=== PATIENT | female | born 1985 | race Caucasian/White ===

== ENCOUNTER 2019-02-10 08:27 | Emergency (ER) | payer SELFPAY ==
--- NOTE | 2019-02-10 09:21 | RAD REPORT ---
EXAM DESCRIPTION: RAD - Wrist Left 3 View - 02/10/2019 9:11 am CLINICAL HISTORY: PAIN Pain COMPARISON: No comparisons FINDINGS: No fracture or dislocation seen. No foreign body or other soft tissue abnormality. IMPRESSION: Negative examination.
--- NOTE | 2019-02-10 09:23 | ER ---
Nurse's Notes [facility] Name: Cheli Jang Age: 33 yrs Sex: Female : 1985 Arrival Date: 02/10/2019 Time: 08:31 Bed 14 Private MD: None, None Diagnosis: Contusion of left wrist Presentation: 02/10 08:39 Presenting complaint: Patient states: yesterday was carrying some wood, was trying to iw put it into her car, hit left wrist on car door, now c/o pain to left wrist. Transition of care: patient was not received from another setting of care. Onset of symptoms was February 08, 2019. Risk Assessment: Do you want to hurt yourself or someone else? Patient reports no desire to harm self or others. Initial Sepsis Screen: Does the patient meet any 2 criteria? No. Patient's initial sepsis screen is negative. Does the patient have a suspected source of infection? No. Patient's initial sepsis screen is negative. Care prior to arrival: None. 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 - Family history:: not pertinent. - Hospitalizations: : No recent hospitalization is reported. Screenin:50 Abuse screen: Denies threats or abuse. Nutritional screening: No deficits noted. aa5 Tuberculosis screening: No symptoms or risk factors identified. Fall Risk None identified. Assessment: 08:38 General: Appears comfortable, Behavior is calm, cooperative. Pain: Complains of pain in aa5 left wrist Pain does not radiate. Pain currently is 9 out of 10 on a pain scale. Quality of pain is described as sharp, Pain began 1 day ago. Is continuous, Aggravated by movement to left wrist. Neuro: Level of Consciousness is awake, alert, obeys commands, Oriented to person, place, time, situation. Cardiovascular: Capillary refill < 3 seconds is brisk in bilateral fingers. Respiratory: Airway is patent Respiratory effort is even, unlabored, Respiratory pattern is regular, symmetrical. GI: No signs and/or symptoms were reported involving the gastrointestinal system. : No signs and/or symptoms were reported regarding the genitourinary system. EENT: No signs and/or symptoms were reported regarding the EENT system. Derm: Skin is pink, warm \T\ dry. Musculoskeletal: Range of motion: intact in all extremities. 09:45 Reassessment: Patient is alert, oriented x 3, equal unlabored respirations, skin aa5 warm/dry/pink. Vital Signs: 08:43 Pulse 96; Resp 16 S; Temp 98.0(O); Pulse Ox 100% on R/A; Weight 98.43 kg; Height 5 ft. iw 6 in. (167.64 cm); Pain 9/10; 08:45 BP 127 / 83; aa5 08:43 Body Mass Index 35.02 (98.43 kg, 167.64 cm) iw ED Course: 08:31 Patient arrived in ED. mr 08:31 None, None is Private Physician. mr 08:34 Ishmael Fried MD is Attending Physician. rn 08:35 Lis Luevano, SADE is Primary Nurse. aa5 08:38 Arm band placed on. aa5 08:38 Patient has correct armband on for positive identification. Bed in low position. Call aa5 light in reach. Side rails up X 1. 08:42 Triage completed. iw 09:11 X-ray completed. Portable x-ray completed in exam room. Patient tolerated procedure la2 well. 09:12 XRAY Wrist LEFT 3 view In Process Unspecified. EDMS 09:45 No provider procedures requiring assistance completed. Patient did not have IV access aa5 during this emergency room visit. Administered Medications: No medications were administered Outcome: 09:23 Discharge ordered by . rn 09:45 Discharged to home ambulatory. aa5 09:45 Condition: good 09:45 Discharge instructions given to patient, Instructed on discharge instructions, follow up and referral plans. Demonstrated understanding of instructions, follow-up care. 09:49 Patient left the ED. aa5 Signatures: Dispatcher [employer] GILBERT Su Karla mr Deisy Cabrales, RN RN iw Ishmael Fried MD MD rn Calderon, Audri, RN RN aa5 Stacey Boyd Corrections: (The following items were deleted from the chart) 08:51 08:43 Arm band placed on iw aa5
--- NOTE | 2019-02-10 09:23 | EDPHYS ---
Physician Documentation [facility] Name: Cheli Jang Age: 33 yrs Sex: Female : 1985 Arrival Date: 02/10/2019 Time: 08:31 Bed 14 Private MD: None, None ED Physician Ishmael Fried HPI: 02/10 08:42 This 33 yrs old Female presents to ER via Ambulatory with complaints of Wrist rn Injury. 08:42 The patient or guardian reports injury, pain. The complaints affect the left wrist rn diffusely. Context: The problem was sustained at home. Onset: The symptoms/episode began/occurred yesterday. Modifying factors: The symptoms are alleviated by holding still, the symptoms are aggravated by movement. The patient has not experienced similar symptoms in the past. Reports using filomena yesterday, moving a lot of wood, and hit left wrist on car door yesterday, concerned might be broken. No fall. Able to move, hurts more on radial side. . 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 - Family history:: not pertinent. - Hospitalizations: : No recent hospitalization is reported. ROS: 08:42 MS/Extremity: + left wrist injury and pain Neuro: Negative for rn numbness/tingling/weakness Exam: 08:42 Hand exam: is negative for rn 08:42 Hand exam: is negative for perfusion abnormalities, pulse abnormalities, snuff box/scaphoid tenderness, Exam is positive for pain, tenderness, ROM: full passive range of motion, limited active range of motion, Circulation is intact in all extremities. sensation intact. Compartment Syndrome exam of affected extremity: is normal. Vital Signs: 08:43 Pulse 96; Resp 16 S; Temp 98.0(O); Pulse Ox 100% on R/A; Weight 98.43 kg; Height 5 ft. iw 6 in. (167.64 cm); Pain 9/10; 08:45 BP 127 / 83; aa5 08:43 Body Mass Index 35.02 (98.43 kg, 167.64 cm) iw MDM: 08:34 Patient medically screened. rn 09:22 Differential diagnosis: closed fracture, contusion, tendonitis. Data reviewed: vital rn signs, nurses notes, radiologic studies, plain films, and as a result, I will discharge patient. Counseling: I had a detailed discussion with the patient and/or guardian regarding: the historical points, exam findings, and any diagnostic results supporting the discharge/admit diagnosis, radiology results, the need for outpatient follow up, to return to the emergency department if symptoms worsen or persist or if there are any questions or concerns that arise at home. Special discussion: I discussed with the patient/guardian in detail that at this point there is no indication for admission to the hospital. It is understood, however, that if the symptoms persist or worsen the patient needs to return immediately for re-evaluation. 02/10 08:42 Order name: XRAY Wrist LEFT 3 view; Complete Time: 09:22 rn Administered Medications: No medications were administered Disposition: 02/10/19 09:23 Discharged to Home. Impression: Contusion of left wrist. - Condition is Stable. - Discharge Instructions: Wrist Pain. - Medication Reconciliation Form, Thank You Letter, Antibiotic Education, Prescription Opioid Use form. - Follow up: Private Physician; When: As needed; Reason: Recheck today's complaints, Re-evaluation by your physician. - Problem is new. - Symptoms have improved. Signatures: Dispatcher [employer] EDDeisy Lipscomb RN RN Ishmael Fried MD MD rn Calderon, Audri, RN RN aa5 Corrections: (The following items were deleted from the chart) 09:49 09:23 02/10/2019 09:23 Discharged to Home. Impression: Contusion of left wrist. aa5 Condition is Stable. Forms are Medication Reconciliation Form, Thank You Letter, Antibiotic Education, Prescription Opioid Use. Follow up: Private Physician; When: As needed; Reason: Recheck today's complaints, Re-evaluation by your physician. Problem is new. Symptoms have improved. rn
[2019-02-10 13:50] VITALS: TEMP 98; O2SAT 100
[2019-02-10 13:53] VITALS: BP 127/83
== END 2019-02-10 09:49 | disposition home or self-care (01) ==
LOC: ER 08:27
DX: S60.212A Contusion of left wrist, initial encounter (principal); W22.8XXA Striking against or struck by other objects, initial encounter
CPT/HCPCS: 99283

== ENCOUNTER 2020-04-11 19:38 | Emergency (ER) | payer SELFPAY ==
[2020-04-11] MEDS ORDERED: ONDANSETRON 4 MG (ODT) TAB ONE (21:26)
[2020-04-11] MEDS ORDERED: ACETAMINOPHEN 325 MG TABLET ONE (21:26)
[2020-04-11] MEDS ORDERED: NEOMY/POLY/HC 1% OTIC DROPS ONE (21:44)
[2020-04-11] MEDS ORDERED: HYDROCODONE/APAP 7.5/325 MG TAB ONE (21:45)
[2020-04-11] MEDS ORDERED: dexAMETHasone 4 MG TAB ONE (21:46)
--- NOTE | 2020-04-11 22:27 | EDPHYS ---
Physician Documentation [facility] Name: Cheli Jang Age: 35 yrs Sex: Female : 1985 Arrival Date: 04/11/2020 Time: 19:39 Bed 27 Private MD: SUMEET Physician George Amaya HPI: 04/11 21:52 This 35 yrs old Female presents to ER via Ambulatory with complaints of Ear snw Pain. 21:52 The patient presents with a fullness, hearing loss, pain, that is acute. The complaints snw affect the right ear. Onset: The symptoms/episode began/occurred suddenly. Modifying factors: The symptoms are alleviated by nothing, the symptoms are aggravated by pulling on ears, . Associated signs and symptoms: Pertinent positives: unable to sleep 2nd to pain. Severity of symptoms: At their worst the symptoms were moderate. The patient has not experienced similar symptoms in the past. The patient has not recently seen a physician. using swimmer's ear, candleing, . Historical: - Allergies: 20:01 No Known Allergies; ll1 - PSHx: 20:01 Cholecystectomy; Tubal ligation; ; ll1 - Immunization history:: Adult Immunizations up to date. - Social history:: Smoking status: Patient reports the use of cigarette tobacco products, smokes one-half pack cigarettes per day, Patient/guardian denies using alcohol, street drugs. ROS: 21:46 Constitutional: Negative for fever, chills, and weight loss, Eyes: Negative for injury, snw pain, redness, and discharge, Neck: Negative for injury, pain, and swelling, Cardiovascular: Negative for chest pain, palpitations, and edema, Respiratory: Negative for shortness of breath, cough, wheezing, and pleuritic chest pain, Abdomen/GI: Negative for abdominal pain, nausea, vomiting, diarrhea, and constipation, Back: Negative for injury and pain, : Negative for injury, bleeding, discharge, and swelling, MS/Extremity: Negative for injury and deformity, Skin: Negative for injury, rash, and discoloration, Neuro: Negative for headache, weakness, numbness, tingling, and seizure, Psych: Negative for depression, anxiety, suicide ideation, homicidal ideation, and hallucinations. 21:46 ENT: Negative for ear pain. Exam: 21:43 Constitutional: This is a well developed, well nourished patient who is awake, alert, snw and in no acute distress. Head/Face: Normocephalic, atraumatic. Eyes: Pupils equal round and reactive to light, extra-ocular motions intact. Lids and lashes normal. Conjunctiva and sclera are non-icteric and not injected. Cornea within normal limits. Periorbital areas with no swelling, redness, or edema. Neck: Trachea midline, no thyromegaly or masses palpated, and no cervical lymphadenopathy. Supple, full range of motion without nuchal rigidity, or vertebral point tenderness. No Meningismus. Chest/axilla: Normal chest wall appearance and motion. Nontender with no deformity. No lesions are appreciated. Cardiovascular: Regular rate and rhythm with a normal S1 and S2. No gallops, murmurs, or rubs. Normal PMI, no JVD. No pulse deficits. Respiratory: Lungs have equal breath sounds bilaterally, clear to auscultation and percussion. No rales, rhonchi or wheezes noted. No increased work of breathing, no retractions or nasal flaring. Abdomen/GI: Soft, non-tender, with normal bowel sounds. No distension or tympany. No guarding or rebound. No evidence of tenderness throughout. Back: No spinal tenderness. No costovertebral tenderness. Full range of motion. Skin: Warm, dry with normal turgor. Normal color with no rashes, no lesions, and no evidence of cellulitis. MS/ Extremity: Pulses equal, no cyanosis. Neurovascular intact. Full, normal range of motion. Neuro: Awake and alert, GCS 15, oriented to person, place, time, and situation. Cranial nerves II-XII grossly intact. Motor strength 5/5 in all extremities. Sensory grossly intact. Cerebellar exam normal. Normal gait. Psych: Awake, alert, with orientation to person, place and time. Behavior, mood, and affect are within normal limits. 21:43 ENT: External ear(s): are unremarkable, Ear canal(s): erythema, that is moderate, swelling, that is moderate, of the right canal, TM's: not visable, because of cerumen, Nose: is normal, Mouth: is normal, Posterior pharynx: is normal, Voice: is normal. Vital Signs: 19:59 BP 146 / 105; Pulse 104; Resp 17; Temp 97.9; Pulse Ox 96% ; Pain 2/10; ll1 21:57 BP 131 / 93; Pulse 77; Resp 16; Pulse Ox 100% on R/A; jb4 22:30 BP 123 / 92; Pulse 74; Resp 16; Pulse Ox 98% on R/A; jb4 MDM: 19:58 Patient medically screened. [facility] 22:25 Data reviewed: vital signs, nurses notes. Data interpreted: Pulse oximetry: on room air snw is 100 %. Interpretation: normal. Counseling: I had a detailed discussion with the patient and/or guardian regarding: the historical points, exam findings, and any diagnostic results supporting the discharge/admit diagnosis, the presence of at least one elevated blood pressure reading (>120/80) during this emergency department visit, the need for outpatient follow up, to return to the emergency department if symptoms worsen or persist or if there are any questions or concerns that arise at home. Special discussion: I have referred the patient to see his PCP for further evaluation of high blood pressure. Based on the history and exam findings, there is no indication for further emergent testing or inpatient evaluation. I discussed with the patient/guardian the need to see the ENT specialist for further evaluation of the symptoms. I discussed with the patient/guardian the need to see the primary care provider for further evaluation of the symptoms. Administered Medications: 21:10 Drug: Zofran (Ondansetron) 4 mg Route: PO; jb4 21:56 Follow up: Response: No adverse reaction; Nausea is decreased jb4 21:15 Drug: Tylenol 650 mg Route: PO; jb4 21:56 Follow up: Response: No adverse reaction; Pain is decreased jb4 21:44 Drug: Eva (7.5 mg-325 mg) 1 tabs Route: PO; jb4 21:56 Follow up: Response: No adverse reaction; RASS: Alert and Calm (0) jb4 21:44 Drug: Decadron 8 mg Route: PO; jb4 21:56 Follow up: Response: No adverse reaction jb4 21:54 Drug: Cortisporin Drops 4 drops Route: Otic; Site: right ear; jb4 Disposition: 04/12 14:45 Co-signature as Attending Physician, George Amaya MD I agree with the assessment and [facility] plan of care. Disposition: 04/11/20 22:26 Discharged to Home. Impression: Acute contact otitis externa. - Condition is Stable. - Discharge Instructions: Otitis Externa, Heat Therapy. - Prescriptions for Diclofenac Sodium 75 mg Oral Tablet Sustained Release - take 1 tablet by ORAL route 2 times per day; 30 tablet. - Work release form, Medication Reconciliation Form, Thank You Letter, Antibiotic Education, Prescription Opioid Use form. - Follow up: Emergency Department; When: As needed; Reason: Worsening of condition. Follow up: Private Physician; When: 2 - 3 days; Reason: Recheck today's complaints, Continuance of care, Re-evaluation by your physician. Signatures: George Amaya MD MD cha Therrien, Shelly, CASE MONITOR-C CASE MONITOR-Csnw Luis Vallejo, RN RN jb4 Zay Lomeli RN RN ll1 Corrections: (The following items were deleted from the chart) 04/11 22:39 22:26 04/11/2020 22:26 Discharged to Home. Impression: Acute contact otitis externa. jb4 Condition is Stable. Forms are Medication Reconciliation Form, Thank You Letter, Antibiotic Education, Prescription Opioid Use. Follow up: Emergency Department; When: As needed; Reason: Worsening of condition. Follow up: Private Physician; When: 2 - 3 days; Reason: Recheck today's complaints, Continuance of care, Re-evaluation by your physician. snw
--- NOTE | 2020-04-11 22:27 | ER ---
Nurse's Notes [facility] Name: Cheli Jang Age: 35 yrs Sex: Female : 1985 Arrival Date: 04/11/2020 Time: 19:39 Bed 27 Private MD: Diagnosis: Acute contact otitis externa Presentation: 04/11 19:59 Chief complaint: Patient states: Right ear pain since Friday. Tried OTC drops, ll1 without relief. States it feels clogged and makes little noises when swallowing. No fever. Coronavirus screen: Proceed with normal triage. Patient denies a cough. Patient denies shortness of breath or difficulty breathing. Patient denies measured and/or subjective temperature greater than 100.4F prior to today's visit. Patient denies travel on a cruise ship or to a country the [facility] currently lists as an affected area. Patient denies contact with known and/or suspected case of COVID-19. Ebola Screen: Patient denies travel to an Ebola-affected area in the 21 days before illness onset. Initial Sepsis Screen: Does the patient meet any 2 criteria? HR > 90 bpm. No. Patient's initial sepsis screen is negative. Risk Assessment: Do you want to hurt yourself or someone else? Patient reports no desire to harm self or others. Onset of symptoms was April 08, 2020. 19:59 Method Of Arrival: Ambulatory ll1 19:59 Acuity: EUGENIO 4 ll1 Historical: - Allergies: 20:01 No Known Allergies; ll1 - PSHx: 20:01 Cholecystectomy; Tubal ligation; ; ll1 - Immunization history:: Adult Immunizations up to date. - Social history:: Smoking status: Patient reports the use of cigarette tobacco products, smokes one-half pack cigarettes per day, Patient/guardian denies using alcohol, street drugs. Screenin:25 Abuse screen: Denies threats or abuse. Nutritional screening: No deficits noted. jb4 Tuberculosis screening: No symptoms or risk factors identified. Fall Risk None identified. Assessment: 20:25 General: Appears in no apparent distress. uncomfortable, Behavior is calm, cooperative, jb4 appropriate for age. Pain: Complains of pain in right ear Pain does not radiate. Pain currently is 4 out of 10 on a pain scale. Quality of pain is described as aching. Neuro: Level of Consciousness is awake, alert, obeys commands, Oriented to person, place, time, situation. Cardiovascular: Patient's skin is warm and dry. Respiratory: Airway is patent Respiratory effort is even, unlabored, Respiratory pattern is regular, symmetrical. GI: No signs and/or symptoms were reported involving the gastrointestinal system. : No signs and/or symptoms were reported regarding the genitourinary system. EENT: Tympanic membrane not visualized left ear and right ear Ear canal is clear in the right ear and dried blood is noted to the wall of the canal, Cerumen occludes the left ear canal. Provider notified.. Derm: Skin is intact, Skin is pink, warm \T\ dry. Musculoskeletal: Circulation, motion, and sensation intact. Range of motion: intact in all extremities. 21:57 Reassessment: Patient appears in no apparent distress at this time. Patient and/or jb4 family updated on plan of care and expected duration. Pain level reassessed. Patient is alert, oriented x 3, equal unlabored respirations, skin warm/dry/pink. Patient states feeling better. 22:36 Reassessment: Patient appears in no apparent distress at this time. Patient and/or jb4 family updated on plan of care and expected duration. Pain level reassessed. Patient is alert, oriented x 3, equal unlabored respirations, skin warm/dry/pink. Vital Signs: 19:59 BP 146 / 105; Pulse 104; Resp 17; Temp 97.9; Pulse Ox 96% ; Pain 2/10; ll1 21:57 BP 131 / 93; Pulse 77; Resp 16; Pulse Ox 100% on R/A; jb4 22:30 BP 123 / 92; Pulse 74; Resp 16; Pulse Ox 98% on R/A; jb4 ED Course: 19:39 Patient arrived in ED. cl3 19:56 Leslie Hutchinson FNP-C [facility]. snw 19:56 George Amaya MD is Attending Physician. snw 20:00 Triage completed. ll1 20:01 Arm band placed on Patient placed in an exam room, on a stretcher. ll1 20:25 Luis Vallejo RN is Primary Nurse. jb4 20:25 Patient has correct armband on for positive identification. Bed in low position. Call jb4 light in reach. Side rails up X 1. Pulse ox on. NIBP on. 22:38 No provider procedures requiring assistance completed. Patient did not have IV access jb4 during this emergency room visit. Administered Medications: 21:10 Drug: Zofran (Ondansetron) 4 mg Route: PO; jb4 21:56 Follow up: Response: No adverse reaction; Nausea is decreased jb4 21:15 Drug: Tylenol 650 mg Route: PO; jb4 21:56 Follow up: Response: No adverse reaction; Pain is decreased jb4 21:44 Drug: [place] (7.5 mg-325 mg) 1 tabs Route: PO; jb4 21:56 Follow up: Response: No adverse reaction; RASS: Alert and Calm (0) jb4 21:44 Drug: Decadron 8 mg Route: PO; jb4 21:56 Follow up: Response: No adverse reaction jb4 21:54 Drug: Cortisporin Drops 4 drops Route: Otic; Site: right ear; jb4 Outcome: 22:26 Discharge ordered by MD. rodrigues 22:38 Discharged to home ambulatory. jb4 22:38 Condition: stable 22:38 Discharge instructions given to patient, Instructed on discharge instructions, follow up and referral plans. medication usage, Demonstrated understanding of instructions, follow-up care, medications, Prescriptions given X 1. 22:39 Patient left the ED. jb4 Signatures: Leslie Hutchinson, MUD JACK NOZZLE WORKER-C MUD JACK NOZZLE WORKER-Csnw Luis Vallejo RN RN jb4 Estrellita Lomeli3 Zay Lomeli RN RN ll1
== END 2020-04-11 22:39 | disposition home or self-care (01) ==
LOC: ER 19:38
DX: H60.531 Acute contact otitis externa, right ear (principal); F17.210 Nicotine dependence, cigarettes, uncomplicated
CPT/HCPCS: 99283; J8540

== ENCOUNTER 2021-10-25 09:43 | Emergency (ER) | payer OTHER, SELFPAY ==
--- OUTSIDE RECORDS SUMMARY | 2021-10-25 09:47 | XMS REPORT | Continuity of Care Document ---
:1985 Author Organization [facility] t Address [address] [place] [address] [address]. [address] [place] [address] Care Team Providers Name Role Phone Noble Tipton DO Attending Clinician Edilma Arguello Attending Clinician Edilma WELDON Attending Clinician Unavailable Doctor Unassigned, Name Attending Clinician Unavailable Rober KLEIN, F Attending Clinician Payers Payer Name Policy Type Policy Number Effective Date Expiration Date S ource Advance Directives Directive Decision Effective Termination Comments Source Date Date Healthcare Agents on N/A Univ ersity FileNameRelationshipHealthcare [facility] Agent Medical RelationshipCommunicationJerri [facility] [phone] (Mobile)[facility] OtherHealth Care [phone] (Mobile) Problems Condition Condition Condition Status Onset Resolution Last Treating Co mments Source Name Details Category Date Date Treatment Clinician Date History of History of Disease Active U nivers bilateral bilateral 07-19 ity of tubal tubal 00:00: [place] ligation ligation 00 Medica l Branch Feeling Feeling Disease Active Univers tired tired 07-19 ity of 00:00: [address] Intermenst Intermenst Disease Active 2020-0 U nivers rual heavy rual heavy 07-19 it y of bleeding bleeding 00:00: [address] Vaginal Vaginal Disease Active 2017-11 Univers discharge discharge 11-15 ity of 00:00: [address] BMI BMI Disease Active 2017-11 Univers 34.0-34.9, 34.0-34.9, 1-06 it y of adult adult 00:00: [address] BV BV Disease Active 2016-11 Univers (bacterial (bacterial 1-30 it y of vaginosis) vaginosis) 00:[place] [facility] Cervicitis Cervicitis Disease Active 2016-11 U nivers 30 ity of 00:00: [place] 00 [facility] Elevated Elevated Disease Active 2016-11 Unive rs blood blood 1-15 ity of pressure pressure 00:00: [place] reading reading 00 Medical without without Branch diagnosis diagnosis of of hypertensi hypertensi on on Lump or Lump or Disease Active 2016-11 Univers mass in mass in 15 ity of breast breast 00:00: [address] Branch Screening Screening Disease Active Uni vers examinatio examinatio 9-15 it y of n for STD n for STD [place] ([place]ually (sexually 00 [facility] jesus transmitte transmitte Br anch d disease) d disease) Class 1 Class 1 Disease Active Univers obesity obesity 9-15 [place] of with body with body [place] index mass index 00 Me dical (BMI) of (BMI) of Branch 34.0 to 34.0 to 34.9 in 34.9 in adult, adult, unspecifie unspecifie d obesity d obesity type, type, unspecifie unspecifie d whether d whether serious serious comorbidit comorbidit y present y present Tobacco Tobacco Disease Active Univers use use 9-15 ity of disorder disorder 00:00: [place] 00 [facility] IUD IUD Disease Active Univers (intrauter (intrauter 9-15 it y of ine ine 00:00: [place] device) in device) in [address] Branch Other Other Disease Active Univers general general 8-11 ity of counseling counseling [place] and advice and advice 00 Me dical for for Branch contracept contracept daniel daniel management management Allergies, Adverse Reactions, Alerts Allergy Allergy Status Severity Reaction(s) Onset Inactive Treating Comm ents Source Name Type Date Date Clinician NO KNOWN Drug Active Univers ALLERGIE Class ity of [facility] Social History Social Habit Start Date Stop Date Quantity Comments Source History of tobacco 2007-07-25 Cigarette Smoker University of use 00:00:[address] [facility] Exposure to Not sure University of SARS-CoV-2 (event) [facility] Tobacco use and 2020-07-19 2020-07-19 Never used Universit y of exposure 00:00:00 00:00:[address] [facility] Cigarettes smoked 2020-07-19 2020-07-19 Univers ity of current (pack per 00:00:00 00:00:00 [facility] ) - Reported Branch Cigarette 2020-07-19 2020-07-19 University of pack-years 00:00:00 00:00:[address] [facility] Alcohol intake 2020-07-19 2020-07-19 Current University of 00:00:00 00:00:00 non-drinker of [facility] alcohol [place] (finding) Tobacco Comment 2018-09-15 2018-09-15 one pack x1 wk. Univ ersity of 00:00:00 00:00:[address] [facility] Alcohol Comment 2017-07-25 2017-07-25 social Universit y of 00:00:00 00:00:[address] [facility] Sex Ass[birth year] At [birth year] Universit y of 00:00:00 00:00:[address] [facility] Smoking Status Start Date Stop Date Source Current every day smoker 2020-07-19 00:00:[address] [facility] Medications Ordered Filled Start Stop Current Ordering Indication Dosage Frequency Signature Comments Components Source Medication Medication Date Date Medication? Clinician (SIG) Name Name meclizine 2020- No 25mg 25 mg, Unive rs (TRAVEL-EAS 04-15 Oral, ity of E 20:45: 20:03 ONCE, 1 [place] (MECLIZINE) 00 :00 dose, Sat Med ical ) tablet 25 04/15/20 at [facility] mg 1545, ACE meclizine 2020-0 Yes [id number] 25mg Take 1 U nivers 25 mg 6-06 tablet by ity of tablet 00:00: mouth 3 [place] 00 (three) Medical times Branch daily as needed for Dizziness. meclizine 2020-0 Yes [id number] 25mg Take 1 U nivers 25 mg 6-06 tablet by ity of tablet 00:00: mouth 3 [place] (three) Medical times Branch daily as needed for Dizziness. meclizine 2020-0 Yes [id number] 25mg Take 1 U nivers 25 mg 6-06 tablet by ity of tablet 00:00: mouth 3 [place] 00 (three) Medical times Branch daily as needed for Dizziness. meclizine 2020-0 Yes [id number] 25mg Take 1 U nivers 25 mg 6-06 tablet by ity of tablet 00:00: mouth 3 00 (three) Medical times Branch daily as needed for Dizziness. meclizine 2020-0 Yes [id number] 25mg Take 1 U nivers 25 mg 6-06 tablet by ity of tablet 00:00: mouth 3 00 (three) Medical times Branch daily as needed for Dizziness. amoxicillin 2019- 2020- No [id number] 1{tbl} Take 1 Univers -clavulanat 04-15 33097 tablet by i ty of e 875-125 00:00: 04:59 mouth [place] mg per 00 :00 every 12 Medical tablet (twelve) Branch hours for 7 days. Vital Signs Vital Name Observation Time Observation Value Comments Source Systolic blood 2020-07-19 20:28:00 136 mm[Hg] Univer [facility]ity of [facility] Diastolic blood 2020-07-19 20:28:00 91 [facility]Hg[facility] 2020-07-19 20:27:00 89 /min [facility] Body temperature 2020-07-19 20:27:00 36.5 Carmita [facility] Respiratory rate 2020-07-19 20:27:00 16 /min [facility] Body height 2020-07-19 20:27:00 167.6 cm [facility] Body weight 2020-07-19 20:27:00 101.152 kg [facility] BMI 2020-07-19 20:27:00 35.99 kg/m2 [facility] Systolic blood 2020-04-15 19:20:00 134 mm[Hg] Univer [facility]ity of [facility] Diastolic blood 2020-04-15 19:20:00 101 mm[Hg] [facility] rate 2020-04-15 19:20:00 105 /min [facility] Body temperature 2020-04-15 19:20:00 37.17 [facility] 2020-04-15 19:20:00 16 /min [facility] Body weight 2020-04-15 19:20:00 97.523 kg Universi ty [facility] BMI 2020-04-15 19:20:00 34.70 kg/m2 Universi ty [facility] Oxygen saturation in 2020-04-15 19:20:00 99 /min [facility] Arterial blood by [facility] Pulse oximetry Branch Procedures Procedure Date / Time Performing Clinician Source Performed ASSIGNMENT OF BENEFITS 2020-07-19 21:10:25 Doctor Unassigned, No [facility] Name [facility] THYROID STIMULATING 2020-07-19 21:05:00 Mattie Weldon [facility] HORMONE [facility] CBC WITH DIFF 2020-07-19 21:05:00 [facility] HIV 1/2 AG-AB WITH 2020-07-19 21:05:00 [facility] Encounters Start End Encounter Admission Attending Care Care Encounter Source Date/Time Date/Time Type Type Clinicians Facility Department ID 2021-09-[address] [facility] [id number] Univers 23:50:[address] [facility] 2021-01-30 2021-01-30 Patient Saeed [facility] [id number] Univers 00:00:00 00:00:00 Outreach Dilan PRIMARY [id number] i ty [facility] [id number] Darioa s SHADY [id number] [address] 2020-07-19 2020-07-19 Office Shiraz [facility] [id number] Univers 15:03:34 16:09:36 Visit Mattie France REVIEW SPECIALIST [id number] ity [facility] [id number] Dario as MATERNAL [id number] Med ical & CHILD [address] [place] [address] 2020-07-19 2020-07-[address] [facility] [id number] Univers 15:15:00 15:15:00 MATTIE [id number] ity o f [facility] 2020-07-19 2020-07-[address] [facility] [id number] Univers 15:15:00 15:15:[address] o [address] [facility] 2020-07-19 2020-07-19 Orders Doctor JERRY [id number] Univers 00:00:00 00:00:00 Only Unassigned, SIM [id number] [place] [facility] [id number] Dario [id number] [facility] 009 Branch 2020-04-15 2020-04-15 Emergency Ib[place]unle, [facility] [id number] Univers 14:22:28 15:16:00 Elvis Willis [id number] ity of [place] 4[place]2.686 [place] [id number] [facility] 084 [place] Results Test Description Test Time Test Comments Results Result Comments Source HIV 1/2 AG-AB WITH REFLEX 2020-07-20 05:19:00 Test Item Value Reference Range Interpretation Comme nts HIV Semi-quantitative (test code = Negative Negative 91584-4) CARLIE (test code = CARLIE) Non-reactive for HIV-1 antigen and HIV-1/HIV-2 antibodies. ?No laboratory evidence of HIV infection. ?Repeat in 2-4 weeks if acute HIV infection is suspected. [facility] WITH [id number] 05:19:00 Test Item Value Reference Range Interpretation Comments HIV Negative Negative Semi-quantitative (test code = 28816-2) CARLIE (test code = Non-reactive for HIV-1 CARLIE) antigen and HIV-1/HIV-2 antibodies. ?No laboratory evidence of HIV infection. ?Repeat in 2-4 weeks if acute HIV infection is suspected. [facility] [id number] 03:57:00 Test Item Value Reference Range Interpretation Comments TSH (test code = See_Comment Biotin has been [id number]) reported to cau se a negative bias, interpret resul ts relative to pat tre's use of biotin. [Automated mess age] The system [employer] generated this result transmitted ref erence range: 0.45 - 4 .70 mIU/L. The refe rence range was not u sed to interpret this result as normal/abnor mal. Lab Interpretation (test Normal code = 25277-2) [facility] [id number] 03:57:00 Test Item Value Reference Range Interpretation Comments TSH (test code = See_Comment Biotin has been [id number]) reported to cau se a negative bias, interpret resul ts relative to kole toledo's use of biotin. [Automated mess age] The system [employer] generated this result transmitted ref erence range: 0.45 - 4 .70 mIU/L. The refe rence range was not u sed to interpret this result as normal/abnor mal. Lab Interpretation (test Normal code = 56254-6) [facility] WITH [id number] 03:09:00 Test Item Value Reference Range Interpretation Comments WBC (test code = See_Comment [Automated message] 8690-2) The system [employer] generated this result transmitted ref erence range: 4.30 - 1 1.10 10*3/?L. The re ference range was not u sed to interpret this result as normal/abnor mal. RBC (test code = See_Comment [Automated message] 019-8) The system [employer] generated this result transmitted ref erence range: 3.93 - 5 .25 10*6/?L. The re ference range was not u sed to interpret this result as normal/abnor mal. HGB (test code = 13.6 g/dL 11.6-15 718-7) HCT (test code = 41.1 % 35.7-45.2 4544-3) MCV (test code = 92.2 fL 80.6-95.5 787-2) MCH (test code = 30.5 pg 25.9-32.8 785-6) MCHC (test code = 33.1 g/dL 31.6-35.1 786-4) RDW-SD (test code 46.5 fL 39-49.9 = 22543-9) RDW-CV (test code 13.6 % 12-15.5 = 788-0) PLT (test code = See_Comment [Automated message] 877-3) The system [employer] generated this result transmitted ref erence range: 166 - 35 8 10*3/?L. The re ference range was not u sed to interpret this result as normal/abnor mal. MPV (test code = 11.2 fL 9.5-12.9 36148-6) NRBC/100 WBC (test See_Comment [Automat ed message] code = 8248871532) The syste m which generated this result transmitted ref erence range: 0.0 - 10 .0 /100 WBCs. The refer ence range was not u sed to interpret this result as normal/abnor mal. NRBC x10^3 (test <0.01 See_Comment [Automated message] code = 1236049443) The syste m which generated this result transmitted ref erence range: 10*3/?L. The reference range was not used to interpr et this result as normal/abnormal . GRAN MAT (NEUT) % 63.9 % (test code = 770-8) IMM GRAN % (test 0.20 % code = 9773017041) LYMPH % (test code 26.0 % = 736-9) MONO % (test code 6.9 % = 5905-5) EOS % (test code = 2.4 % 713-8) BASO % (test code 0.6 % = 706-2) GRAN MAT 5.99 10*3/uL 1.88-7.09 x10^3(ANC) (test code = 8189214454) IMM GRAN x10^3 <0.03 0-0.06 (test code = 5640923814) LYMPH x10^3 (test 2.44 10*3/uL 1.32-3.29 code = 731-0) MONO x10^3 (test 0.65 10*3/uL 0.33-0.92 code = 742-7) EOS x10^3 (test 0.23 10*3/uL 0.03-0.39 code = 711-2) BASO x10^3 (test 0.06 10*3/uL 0.01-0.07 code = 704-7) [facility] WITH [id number] 03:09:00 Test Item Value Reference Range Interpretation Comments WBC (test code = See_Comment [Automated message] 6690-2) The system [employer] [facility] [facility] generated this result transmitted ref erence range: 4.30 - 1 1.10 10*3/?L. The re ference range was not u sed to interpret this result as normal/abnor mal. RBC (test code = See_Comment [Automated message] 789-8) The system [employer] generated this result transmitted ref erence range: 3.93 - 5 .25 10*6/?L. The re ference range was not u sed to interpret this result as normal/abnor mal. HGB (test code = 13.6 g/dL 11.6-15 718-7) HCT (test code = 41.1 % 35.7-45.2 4544-3) MCV (test code = 92.2 fL 80.6-95.5 787-2) MCH (test code = 30.5 pg 25.9-32.8 785-6) MCHC (test code = 33.1 g/dL 31.6-35.1 786-4) RDW-SD (test code 46.5 fL 39-49.9 = 76450-0) RDW-CV (test code 13.6 % 12-15.5 = 788-0) PLT (test code = See_Comment [Automated message] 777-3) The system [employer] generated this result transmitted ref erence range: 166 - 35 8 10*3/?L. The re ference range was not u sed to interpret this result as normal/abnor mal. MPV (test code = 11.2 fL 9.5-12.9 82443-3) NRBC/100 WBC (test See_Comment [Automat ed message] code = 2946130329) The syste [employer] which generated this result transmitted ref erence range: 0.0 - 10 .0 /100 WBCs. The refer ence range was not u sed to interpret this result as normal/abnor mal. NRBC x10^3 (test <0.01 See_Comment [Automated message] code = 0997740592) The syste m which generated this result transmitted ref erence range: 10*3/?L. The reference range was not used to interpr et this result as normal/abnormal . GRAN MAT (NEUT) % 63.9 % (test code = 770-8) IMM GRAN % (test 0.20 % code = 9675502261) LYMPH % (test code 26.0 % = 736-9) MONO % (test code 6.9 % = 5905-5) EOS % (test code = 2.4 % 713-8) BASO % (test code 0.6 % = 706-2) GRAN MAT 5.99 10*3/uL 1.88-7.09 x10^3(ANC) (test code = 0969104509) IMM GRAN x10^3 <0.03 0-0.06 (test code = 5728717808) LYMPH x10^3 (test 2.44 10*3/uL 1.32-3.29 code = 731-0) MONO x10^3 (test 0.65 10*3/uL 0.33-0.92 code = 742-7) EOS x10^3 (test 0.23 10*3/uL 0.03-0.39 code = 711-2) BASO x10^3 (test 0.06 10*3/uL 0.01-0.07 code = 704-7) [facility]
[2021-10-25] MEDS ORDERED: KETOROLAC 30 MG/ML INJ ONE (10:26)
--- NOTE | 2021-10-25 10:52 | EDPHYS ---
Physician Documentation [facility] Name: Cheli Jang Age: 36 yrs Sex: Female : 1985 Arrival Date: 10/25/2021 Time: 09:46 Bed 10 Private MD: ED Physician Travis Stafford HPI: 10/25 16:49 This 36 yrs old Female presents to ER via Ambulatory with complaints of Neck and Upper kb Back Pain, Low Back Pain. 16:49 The patient presents with pain that is acute. The symptoms are located in the left kb trapezius and left low back. Onset: The symptoms/episode began/occurred yesterday. The pain radiates. Associated signs and symptoms: The patient has no apparent associated signs or symptoms. The problem was sustained without known cause. Modifying factors: The patient symptoms are alleviated by nothing, the patient symptoms are aggravated by any movement. Severity of symptoms: At their worst the symptoms were moderate, in the emergency department the symptoms are unchanged. The patient has not experienced similar symptoms in the past. The patient has not recently seen a physician. Pt reports pain to left side of neck that radiates down left arm and pain to left low back/upper buttock that radiates down back of thigh. States she got out of bed this morning and urinated a little, was able to stop the stream and get to the restroom to finish urinating. Pt states she has had control of bowel and bladder. Ambulatory. No numbness or tingling. . 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 - Social history:: Smoking status: Patient reports the use of cigarette tobacco products, smokes one-half pack cigarettes per day. ROS: 16:48 Constitutional: Negative for fever, chills, and weight loss. kb 16:48 Back: Positive for radiated pain, of the left trapezius and left low back. 16:48 All other systems are negative. Exam: 16:48 Constitutional: This is a well developed, well nourished patient who is awake, alert, kb and in no acute distress. Head/Face: Normocephalic, atraumatic. ENT: Moist Mucous membranes Cardiovascular: Regular rate and rhythm with a normal S1 and S2. No gallops, murmurs, or rubs. No pulse deficits. Respiratory: Respirations even and unlabored. No increased work of breathing. Talking in full sentences Abdomen/GI: Soft, non-tender. No distention Skin: Warm, dry with normal turgor. Normal color. MS/ Extremity: Pulses equal, no cyanosis. Neurovascular intact. Full, normal range of motion. Neuro: Awake and alert, GCS 15, oriented to person, place, time, and situation. Moves all extremities. Normal gait. Psych: Awake, alert, with orientation to person, place and time. Behavior, mood, and affect are within normal limits. 16:48 Back: pain, that is moderate, of the left trapezius and left low back, ROM is normal, normal spinal alignment noted. 16:51 Neuro: Exam negative for acute changes. kb Vital Signs: 10:05 BP 133 / 94; Pulse 87; Resp 16; Temp 97.7; Pulse Ox 100% ; Weight 92.99 kg; Height 5 vg1 ft. 6 in. (167.64 cm); Pain 8/10; 10:20 BP 120 / 89; Pulse 84; Resp 18; Pulse Ox 100% on R/A; ww 10:05 Body Mass Index 33.09 (92.99 kg, 167.64 cm) vg1 MDM: 10:11 Patient medically screened. kb 16:47 Data reviewed: vital signs, nurses notes. Data interpreted: Pulse oximetry: on room air kb is 100 %. Interpretation: normal. Counseling: I had a detailed discussion with the patient and/or guardian regarding: the historical points, exam findings, and any diagnostic results supporting the discharge/admit diagnosis, the need for outpatient follow up, a family practitioner, to return to the emergency department if symptoms worsen or persist or if there are any questions or concerns that arise at home. Administered Medications: 10:31 Drug: Ketorolac 30 mg Route: IM; Site: right gluteus; ww Disposition: 19:48 Co-signature as Attending Physician, Travis Stafford MD I agree with the assessment and kdr plan of care. Chart complete. Disposition Summary: 10/25/21 10:51 Discharge Ordered Location: Home kb Condition: Stable kb Diagnosis - Radiculopathy, cervical region kb - Sciatica, left side kb Followup: kb - With: Emergency Department - When: As needed - Reason: Worsening of condition Followup: kb - With: Private Physician - When: 2 - 3 days - Reason: Recheck today's complaints, Continuance of care, Re-evaluation by your physician Discharge Instructions: - Discharge Summary Sheet kb - Sciatica, [id number] kb - Cervical Radiculopathy, [id number]-kz-Lglf kb Forms: - Medication Reconciliation Form kb - Thank You Letter kb - Antibiotic Education kb - Prescription Opioid Use kb Prescriptions: - Cyclobenzaprine 10 mg Oral Tablet - take 1 tablet by ORAL route every 8 hours As needed; 21 tablet; Refills: 0, kb Product Selection Permitted - Diclofenac Sodium 75 mg Oral tablet,delayed release (DR/EC) - take 1 tablet by ORAL route 2 times per day As needed; 30 tablet; Refills: 0, kb Product Selection Permitted Signatures: Deborah Mchugh FNP-C FNP-Ckb Rittger, Kevin, MD MD kdr Garcia, Victoria, RN RN vg1 Sherita Pablo RN RN ww Corrections: (The following items were deleted from the chart) 10:08 10:08 Allergies: No Known Allergies; vg1 vg1 10:08 10:08 PMHx: Unable to Obtain; vg1 vg1
--- NOTE | 2021-10-25 10:52 | ER ---
Nurse's Notes [facility] Name: Cheli Jang Age: 36 yrs Sex: Female : 1985 Arrival Date: 10/25/2021 Time: 09:46 Bed 10 Private MD: Diagnosis: Radiculopathy, cervical region;Sciatica, left side Presentation: 10/25 10:05 Chief complaint: Patient states: neck, back, buttock and left leg pain began yesterday. vg1 States unable to move neck, when does move theres a pinch. Also states pain starts in neck and radiates down back left arm and left leg and accidently urinated on self and was unable to stop. Denies any injury or falls. Coronavirus screen: Vaccine status: Patient reports being unvaccinated. Client denies travel out of the [place] in the last 14 days. Ebola Screen: Patient negative for fever greater than or equal to 101.5 degrees Fahrenheit, and additional compatible Ebola Virus Disease symptoms. Acute neurological deficit: none identified. Initial Sepsis Screen: Does the patient meet any 2 criteria? No. Patient's initial sepsis screen is negative. Does the patient have a suspected source of infection? No. Patient's initial sepsis screen is negative. Risk Assessment: Do you want to hurt yourself or someone else? Patient reports no desire to harm self or others. Onset of symptoms was October 24, 2021. 10:05 Method Of Arrival: Ambulatory vg1 10:05 Acuity: EUGENIO 3 vg1 Triage Assessment: 10:08 General: Appears in no apparent distress. uncomfortable, Behavior is calm, cooperative. vg1 Pain: Complains of pain in back, left leg and neck Pain currently is 8 out of 10 on a pain scale. Pain began 1 day ago. Neuro: Level of Consciousness is awake, alert, obeys commands, Oriented to person, place, time, situation, Reports sharp/tingling sensation to left side of neck, left arm, and left buttock and left leg. 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 - Social history:: Smoking status: Patient reports the use of cigarette tobacco products, smokes one-half pack cigarettes per day. Screenin:20 Abuse screen: Denies threats or abuse. Denies injuries from another. Nutritional ww screening: No deficits noted. Tuberculosis screening: No symptoms or risk factors identified. Fall Risk None identified. Assessment: 10:20 General: Appears in no apparent distress. well groomed, well developed, well nourished, ww Behavior is calm, cooperative, appropriate for age. Pain: Complains of pain in scalp and back. Neuro: Level of Consciousness is awake, alert, obeys commands, Oriented to person, place, time, situation, Speech is normal. Cardiovascular: No deficits noted. Denies chest pain, palpitations, shortness of breath, Capillary refill < 3 seconds Patient's skin is warm and dry. Respiratory: No deficits noted. Airway is patent Respiratory effort is even, unlabored, Respiratory pattern is regular, symmetrical. GI: No deficits noted. No signs and/or symptoms were reported involving the gastrointestinal system. : No deficits noted. No signs and/or symptoms were reported regarding the genitourinary system. EENT: No deficits noted. No signs and/or symptoms were reported regarding the EENT system. Derm: No deficits noted. No signs and/or symptoms reported regarding the dermatologic system. Skin is intact, is healthy with good turgor, Skin is pink, warm \T\ dry. Skin temperature is warm. Musculoskeletal: Reports pain in scalp and back. Vital Signs: 10:05 BP 133 / 94; Pulse 87; Resp 16; Temp 97.7; Pulse Ox 100% ; Weight 92.99 kg; Height 5 vg1 ft. 6 in. (167.64 cm); Pain 8/10; 10:20 BP 120 / 89; Pulse 84; Resp 18; Pulse Ox 100% on R/A; ww 10:05 Body Mass Index 33.09 (92.99 kg, 167.64 cm) vg1 ED Course: 09:46 Patient arrived in ED. as 10:08 Triage completed. vg1 10:08 Arm band placed on. vg1 10:11 [facility]C [facility] kb 10:11 Travis Stafford MD is Attending Physician. kb 10:20 Patient has correct armband on for positive identification. Bed in low position. Call ww light in reach. 10:20 No provider procedures requiring assistance completed. Patient did not have IV access ww during this emergency room visit. 10:24 Sherita Pablo, RN is Primary Nurse. ww Administered Medications: 10:31 Drug: Ketorolac 30 mg Route: IM; Site: right gluteus; ww Outcome: 10:20 Discharged to home ambulatory. ww 10:20 Condition: stable 10:20 Discharge instructions given to patient, Instructed on discharge instructions, follow up and referral plans. medication usage, safety practices, Demonstrated understanding of instructions, follow-up care, medications, Prescriptions given X 1. 10:51 Discharge ordered by . kb 11:14 Patient left the ED. ww Signatures: Deborah Mchugh, BANK OPERATIONS OFFICER-C ERNIE-Marielle Gramajo Victoria, RN RN vg1 Sherita Pablo, RN RN ww Corrections: (The following items were deleted from the chart) 10:08 10:08 Allergies: No Known Allergies; vg1 vg1 10:08 10:08 PMHx: Unable to Obtain; vg1 vg1
[2021-10-25 11:21] VITALS: TEMP 97.7; O2SAT 100
[2021-10-25 11:22] VITALS: BP 120/89
== END 2021-10-25 11:14 | disposition home or self-care (01) ==
LOC: ER 09:43
DX: M54.12 Radiculopathy, cervical region (principal); M54.32 Sciatica, left side
CPT/HCPCS: 96372; 99283

== ENCOUNTER 2022-01-11 22:25 | Emergency (ER) | payer OTHER ==
--- OUTSIDE RECORDS SUMMARY | 2022-01-11 22:28 | XMS REPORT | Continuity of Care Document ---
:1985 Author Organization [facility] t Address [address] [place] [address] [address] [place] [address] Care Team Providers Name Role Phone Noble Tipton DO Attending Clinician Edilma Arguello Attending Clinician Edilma WELDON Attending Clinician Unavailable Doctor Unassigned, Name Attending Clinician Unavailable Rober KLEIN, F Attending Clinician Payers Payer Name Policy Type Policy Number Effective Date Expiration Date S ource Advance Directives Directive Decision Effective Termination Comments Source Date Date Healthcare Agents on N/A Univ ersity FileNameRelationshipHealthcare [facility] [place] Agent Medical RelationshipCommunicationJerri [facility] Rex[facility]Health Care [phone] (Mobile)[facility] OtherHealth Care [phone] (Mobile) Problems Condition Condition Condition Status Onset Resolution Last Treating Co mments Source Name Details Category Date Date Treatment Clinician Date History of History of Disease Active U nivers bilateral bilateral 07-19 ity of tubal tubal 00:00: [place] ligation ligation 00 Medica l Branch Feeling Feeling Disease Active Univers tired tired 07-19 ity of 00:00: [address] Intermenst Intermenst Disease Active 2020-0 U nivers rual heavy rual heavy 07-19 it y of bleeding bleeding 00:00: [address] Vaginal Vaginal Disease Active 2017-11 Univers discharge discharge 11-15 ity of 00:00: [address] BMI BMI Disease Active 2017-11 Univers 34.0-34.9, 34.0-34.9, 1-06 it y of adult adult 00:00: [address] BV BV Disease Active 2016-11 Univers (bacterial (bacterial 1-30 it y of vaginosis) vaginosis) 00:[place]: [place] [facility] Cervicitis Cervicitis Disease Active 2016-11 U nivers 30 ity of 00:00: [place] 00 Medical Branch Elevated Elevated Disease Active 2016-11 Unive rs blood blood 1-15 ity of pressure pressure 00:00: [place] reading reading 00 Medical without without Branch diagnosis diagnosis of of hypertensi hypertensi on on Lump or Lump or Disease Active 2016-11 Univers mass in mass in 15 ity of breast breast 00:00: [address] Branch Screening Screening Disease Active Uni vers examinatio examinatio 9-15 it y of n for STD n [place] STD [place] ([place]ually (sexually 00 [facility] jesus transmitte transmitte Br anch d disease) [...] ity of disorder disorder 00:00: [place] 00 [facility] IUD IUD Disease Active Univers (intrauter (intrauter [...] Active Univers ALLERGIE Class ity of S [facility] [place] [facility] Social History Social Habit Start Date Stop Date Quantity Comments Source History of tobacco 2007-07-25 Cigarette Smoker University of use 00:00:00 [facility] [place] [facility] Exposure to Not sure University of SARS-CoV-2 (event) [facility] [place] [facility] Tobacco use and 2020-07-19 2020-07-19 Never used Universit y of exposure 00:00:00 00:00:00 [facility] [place] [facility] Cigarettes smoked 2020-07-19 2020-07-19 Univers ity of current (pack per 00:00:00 00:00:00 [facility] ) - Reported Branch Cigarette 2020-07-19 2020-07-19 University of pack-years 00:00:00 00:00:00 [facility] [place] [facility] Alcohol intake 2020-07-19 2020-07-19 Current University of 00:00:00 00:00:00 non-drinker of [facility] alcohol [place] (finding) Tobacco Comment 2018-09-15 2018-09-15 one pack x1 wk. Univ ersity of 00:00:00 00:00:00 [facility] [place] [facility] Alcohol Comment 2017-07-25 2017-07-25 social Universit y of 00:00:00 00:00:00 [facility] Sex Ass[birth year] At [birth year] Universit y of 00:00:00 00:00:00 [facility] Smoking Status Start Date Stop Date Source Current every day smoker 2020-07-19 00:00:00 Uni versity of [facility] Medications Ordered Filled Start Stop Current Ordering Indication Dosage Frequency Signature Comments Components Source Medication Medication Date Date Medication? Clinician (SIG) Name Name meclizine 2020- No 25mg 25 mg, Unive rs (TRAVEL-EAS 04-15 Oral, ity of E 20:45: 20:03 ONCE, 1 [place] (MECLIZINE) 00 :00 dose, Sat Med ical ) tablet 25 04/15/20 at [facility] mg 1545, ACE meclizine 2020-0 Yes [id number] 25mg Take 1 U nivers 25 mg 6-06 tablet by ity of tablet 00:00: mouth 3 [place] 00 (three) Medical times Branch daily as needed for Dizziness. meclizine 2020-0 Yes [id number] 25mg Take 1 U nivers 25 mg 6-06 tablet by ity of tablet 00:00: mouth 3 [place] (three) Medical times Branch daily as needed for Dizziness. meclizine 2020-0 Yes [id number] 25mg Take 1 U nivers 25 mg 6-06 tablet by ity of tablet 00:00: mouth 3 [place] 00 (three) Medical times Branch daily as needed for Dizziness. meclizine 2020-0 Yes [id number] 25mg Take 1 U nivers 25 mg 6-06 tablet by ity of tablet 00:00: mouth 3 00 (three) Medical times Branch daily as needed for Dizziness. meclizine 2020-0 Yes [id number] 25mg Take 1 U nivers 25 mg 6-06 tablet by ity of tablet 00:00: mouth 3 00 (three) Medical times Branch daily as needed for Dizziness. amoxicillin 2019- 2020- No [id number] 1{tbl} Take 1 Univers -clavulanat 04-15 27844 tablet by i ty of e 875-125 00:00: 04:59 mouth [place] mg per 00 :00 every 12 Medical tablet (twelve) Branch hours for 7 days. Vital Signs Vital Name Observation Time Observation Value Comments Source Systolic blood 2020-07-19 20:28:00 136 mm[Hg] [facility] Diastolic blood 2020-07-19 20:28:00 91 mm[Hg] [facility] 2020-07-19 20:27:00 89 /min [facility] Body temperature 2020-07-19 20:27:00 36.5 Carmita [facility] Respiratory rate 2020-07-19 20:27:00 16 /min [facility] Body height 2020-07-19 20:27:00 167.6 cm [facility] Body weight 2020-07-19 20:27:00 101.152 kg [facility] BMI 2020-07-19 20:27:00 35.99 kg/m2 [facility] Systolic blood 2020-04-15 19:20:00 134 mm[Hg] [facility]iver [facility] Diastolic blood 2020-04-15 19:20:00 101 mm[Hg] [facility] rate 2020-04-15 19:20:00 105 /min [facility] Body temperature 2020-04-15 19:20:00 37.17 [facility]ita [facility] Respiratory rate 2020-04-15 19:20:00 16 /min [facility] Body weight 2020-04-15 19:20:00 97.523 kg [facility] BMI 2020-04-15 19:20:00 34.70 kg/m2 [facility] Oxygen saturation in 2020-04-15 19:20:00 99 /min [facility] Arterial blood by [facility] Pulse oximetry Branch Procedures Procedure Date / Time Performing Clinician Source Performed ASSIGNMENT OF BENEFITS 2020-07-19 21:10:25 Doctor Unassigned, No [facility] THYROID STIMULATING 2020-07-19 21:05:00 Mattie Weldon [facility] HORMONE [facility] CBC WITH DIFF 2020-07-19 21:05:00 [facility] HIV 1/2 AG-AB WITH 2020-07-19 21:05:00 [facility] REFLEX [facility] Encounters Start End Encounter Admission Attending Care Care Encounter Source Date/Time Date/Time Type Type Clinicians Facility Department ID 2021-09-06 Emergency [facility] [id number] Univers 23:50:12 ity of [facility] [place] [facility] 2021-01-30 2021-01-30 Patient Saeed [facility] [id number] Univers 00:00:00 00:00:00 Outreach Dilan PRIMARY [id number] i ty [facility] [id number] Darioa s SHADY [id number] [address] 2020-07-19 2020-07-19 Office Shiraz [facility] [id number] Univers 15:03:34 16:09:36 Visit Mattie [place] 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 SUPERVISOR [id number] ity [facility] [id number] Dario as MATERNAL [id number] Med ical & CHILD [address] [place] [address] 2020-07-19 2020-07-19 Outpatient Edilma WELDON [facility] [id number] Univers 15:15:00 15:15:00 MATTIE [id number] ity o f [facility] [place] [facility] 2020-07-19 2020-07-19 Outpatient Edilma WELDON [facility] [id number] Univers 15:15:00 15:15:00 MATTIE ity o f [facility] [place] [facility] 2020-07-19 2020-07-19 Orders Doctor JERRY [id number] Univers 00:00:00 00:00:00 Only Unassigned, SIM [id number] ity of [place] [facility] [id number] Dario [id number] [facility] 009 Branch 2020-04-15 2020-04-15 Emergency Ibikunle, [facility] [id number] Univers 14:22:28 15:16:00 Elvis Willis [id number] ity of [place] [id number] [place] [id number] [facility] 084 [place] Results Test Description Test Time Test Comments Results Result Comments Source HIV 1/2 AG-AB WITH REFLEX 2020-07-20 05:19:00 Test Item Value Reference Range Interpretation Comme nts HIV Semi-quantitative (test code = Negative Negative 54286-6) CARLIE (test code = CARLIE) Non-reactive for HIV-1 antigen and HIV-1/HIV-2 antibodies. ?No laboratory evidence of HIV infection. ?Repeat in 2-4 weeks if acute HIV infection is suspected. [facility] WITH [id number] 05:19:00 Test Item Value Reference Range Interpretation Comments HIV Negative Negative Semi-quantitative (test code = 48856-5) CARLIE (test code = Non-reactive for HIV-1 CARLIE) antigen and HIV-1/HIV-2 antibodies. ?No laboratory evidence of HIV infection. ?Repeat in 2-4 weeks if acute HIV infection is suspected. [facility] [id number] 03:57:00 Test Item Value Reference Range Interpretation Comments TSH (test code = See_Comment Biotin has been [id number]) reported to cau se a negative bias, interpret resul ts relative to pat tre's use of biotin. [Automated mess age] The system [employer] generated this result transmitted ref erence range: 0.45 - 4 .70 mIU/L. The refe rence range was not u sed to interpret this result as normal/abnor mal. Lab Interpretation (test Normal code = 28403-2) [facility] [id number] 03:57:00 Test Item Value Reference Range Interpretation Comments TSH (test code = See_Comment Biotin has been [id number]) reported to cau se a negative bias, interpret resul ts relative to kole toledo's use of biotin. [Automated mess age] The system [facility] generated this result transmitted ref erence range: 0.45 - 4 .70 mIU/L. The refe rence range was not u sed to interpret this result as normal/abnor mal. Lab Interpretation (test Normal code = 33399-0) [facility] [id number] 03:09:00 Test Item Value Reference Range Interpretation Comments WBC (test code = See_Comment [Automated message] 1190-2) The system [facility] generated this result transmitted ref erence range: 4.30 - 1 1.10 10*3/?L. The re ference range was not u sed to interpret this result as normal/abnor mal. RBC (test code = See_Comment [Automated message] 859-8) The system [facility] generated this result transmitted ref erence range: [...] RDW-SD (test code 46.5 fL 39-49.9 = 75444-0) RDW-CV (test code 13.6 % 12-15.5 = 788-0) PLT (test code = See_Comment [Automated message] 217-3) The system [facility] generated this result transmitted ref erence range: 166 - 35 8 10*3/?L. The re ference range was not u sed to interpret this result as normal/abnor mal. MPV (test code = 11.2 fL 9.5-12.9 02966-2) NRBC/100 WBC (test See_Comment [Automat ed message] code = 3077040067) The syste m which generated this result transmitted ref erence range: 0.0 - 10 .0 /100 WBCs. The refer ence range was not u sed to interpret this result as normal/abnor mal. NRBC x10^3 (test <0.01 See_Comment [Automated message] code = 2751449344) The syste m which generated this result transmitted ref erence range: 10*3/?L. The reference range was not used to interpr et this result as normal/abnormal . GRAN MAT (NEUT) % 63.9 % (test code = 770-8) IMM GRAN % (test 0.20 % code = 9671788092) LYMPH % (test code 26.0 % = 736-9) MONO % (test code 6.9 % = 5905-5) EOS % (test code = 2.4 % 713-8) BASO % (test code 0.6 % = 706-2) GRAN MAT 5.99 10*3/uL 1.88-7.09 x10^3(ANC) (test code = 0104395811) IMM GRAN x10^3 <0.03 0-0.06 (test code = 2848996163) LYMPH x10^3 (test 2.44 10*3/uL 1.32-3.29 code = 731-0) MONO x10^3 (test 0.65 10*3/uL 0.33-0.92 code = 742-7) EOS x10^3 (test 0.23 10*3/uL 0.03-0.39 code = 711-2) BASO x10^3 (test 0.06 10*3/uL 0.01-0.07 code = 704-7) [facility] WITH [id number] 03:09:00 Test Item Value Reference Range Interpretation Comments WBC (test code = See_Comment [Automated message] 6690-2) The system [employer] generated this result transmitted ref erence range: 4.30 - 1 1.10 10*3/?L. The re ference range was not u sed to interpret this result as normal/abnor mal. RBC (test code = See_Comment [Automated message] 789-8) The system [facility] generated this result transmitted ref erence range: [...] RDW-SD (test code 46.5 fL 39-49.9 = 98763-9) RDW-CV (test code 13.6 % 12-15.5 = 788-0) PLT (test code = See_Comment [Automated message] 777-3) The system [facility] generated this result transmitted ref erence range: 166 - 35 8 10*3/?L. The re ference range was not u sed to interpret this result as normal/abnor mal. MPV (test code = 11.2 fL 9.5-12.9 03333-0) NRBC/100 WBC (test See_Comment [Automat ed message] code = 0775093055) The syste [employer] which generated this result transmitted ref erence range: 0.0 - 10 .0 /100 WBCs. The refer ence range was not u sed to interpret this result as normal/abnor mal. NRBC x10^3 (test <0.01 See_Comment [Automated message] code = 7400861097) The syste m which generated this result transmitted ref erence range: 10*3/?L. The reference range was not used to interpr et this result as normal/abnormal . GRAN MAT (NEUT) % 63.9 % (test code = 770-8) IMM GRAN % (test 0.20 % code = 5843559465) LYMPH % (test code 26.0 % = 736-9) MONO % (test code 6.9 % = 5905-5) EOS % (test code = 2.4 % 713-8) BASO % (test code 0.6 % = 706-2) GRAN MAT 5.99 10*3/uL 1.88-7.09 x10^3(ANC) (test code = 0288875983) IMM GRAN x10^3 <0.03 0-0.06 (test code = 5415200297) LYMPH x10^3 (test 2.44 10*3/uL 1.32-3.29 code = 731-0) MONO x10^3 (test 0.65 10*3/uL 0.33-0.92 code = 742-7) EOS x10^3 (test 0.23 10*3/uL 0.03-0.39 code = 711-2) BASO x10^3 (test 0.06 10*3/uL 0.01-0.07 code = 704-7) [facility]
[2022-01-11] MEDS ORDERED: MAGNES/ALUMIN/SIMET 30ML UCUP ONE (22:58)
[2022-01-11] MEDS ORDERED: LIDOCAINE VISCOUS 2% SOLN 15 ML UDC ONE (22:58)
[2022-01-11] MEDS ORDERED: ONDANSETRON 4 MG/2 ML VIAL ONE (22:58)
[2022-01-11] MEDS ORDERED: FAMOTIDINE 20 MG/2 ML VIAL IV ONE (22:59)
[2022-01-11] MEDS ORDERED: NA CHLORIDE 0.9% 1,000 ML ONE (22:59)
[2022-01-11 23:43] LABS: Protime INR 0.97
[2022-01-11 23:44] LABS: Absolute Lymphocytes (CBC) 2.5 K/uL (0.7-4.9); Hematocrit 37.7 % (36.0-45.0); Lymphocytes % 32.7 % (15.3-44.8); MPV 8.6 fL (7.6-11.3); RBC Red Blood Cell Count 4.23 M/uL (3.86-4.86)
[2022-01-11 23:59] LABS: ALT/SGPT 44 U/L (12-78); AST/SGOT 31 U/L (15-37); Albumin 3.4 g/dL (3.4-5.0); Alkaline Phosphatase 95 U/L (45-117); BUN Blood Urea Nitrogen 6 mg/dL (7-18); Bicarbonate 24 mmol/L (21-32); Bilirubin Total 0.3 mg/dL (0.2-1.0); Glucose Level 96 mg/dL (74-106); Lipase 73 U/L (73-393); Magnesium 2.2 mg/dL (1.8-2.4); NT PRO-BNP 34 pg/mL (<125); Potassium 3.2 mmol/L (3.5-5.1); Protein, Total 7.5 g/dL (6.4-8.2); Sodium Level 140 mmol/L (136-145)
[2022-01-12] LABS: Bilirubin Direct < 0.1 mg/dL (0-0.2)
[2022-01-12] MEDS ORDERED: POTASSIUM CL SA 10 MEQ TAB PO ONE (00:30)
[2022-01-12 01:00] LABS: Urine Blood Trace-intact (Negative); Urine Glucose Negative (Negative); Urine Protein Negative (Negative); Urine Specific Gravity 1.015 (1.005-1.030); Urine pH 6.5 (5.0-7.0)
--- NOTE | 2022-01-12 01:02 | ER ---
Nurse's Notes [facility] Name: Cheli Jang Age: 36 yrs Sex: Female : 1985 Arrival Date: 01/11/2022 Time: 22:28 Bed 3 Private MD: Diagnosis: Gastritis, unspecified Presentation: 01/11 22:32 Chief complaint: Patient states: extreme epigastric pain after dinner. thought it may ab2 be due to having a monique. pain continued to get worse. Coronavirus screen: Client denies travel out of the [place] in the last 14 days. At this time, the client does not indicate any symptoms associated with coronavirus-19. Ebola Screen: No symptoms or risks identified at this time. Initial Sepsis Screen: Does the patient meet any 2 criteria? No. Patient's initial sepsis screen is negative. Does the patient have a suspected source of infection? No. Patient's initial sepsis screen is negative. Risk Assessment: Do you want to hurt yourself or someone else? Patient reports no desire to harm self or others. Onset of symptoms was January 11, 2022 at 22:00. 22:32 Method Of Arrival: Wheelchair ab2 22:32 Acuity: EUGENIO 2 ab2 Triage Assessment: 22:36 General: Appears in no apparent distress. uncomfortable, Behavior is calm, cooperative, ab2 anxious, crying. Pain: Complains of pain in chest. EENT: No deficits noted. No signs and/or symptoms were reported regarding the EENT system. Neuro: No deficits noted. Level of Consciousness is awake, alert, obeys commands, Oriented to person, place, time, situation. Cardiovascular: Reports chest pain, fatigue, lightheadedness, nausea, vomiting. Respiratory: No deficits noted. Airway is patent Trachea midline Respiratory effort is even, unlabored, Respiratory pattern is regular, symmetrical. GI: No deficits noted. No signs and/or symptoms were reported involving the gastrointestinal system. Abdomen is round non-distended. : No deficits noted. No signs and/or symptoms were reported regarding the genitourinary system. Derm: No deficits noted. No signs and/or symptoms reported regarding the dermatologic system. Skin is intact, is healthy with good turgor, Skin is dry. Musculoskeletal: No deficits noted. No signs and/or symptoms reported regarding the musculoskeletal system. Circulation, motion, and sensation intact. Range of motion: intact in all extremities. 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 - Social history:: Smoking status: Patient reports the use of cigarette tobacco products, smokes one pack cigarettes per day. Patient uses alcohol, but reports only rare drinking. Patient/guardian denies using street drugs, IV drugs. Screenin:39 Abuse screen: Denies threats or abuse. Denies injuries from another. Nutritional ab2 screening: No deficits noted. Tuberculosis screening: No symptoms or risk factors identified. Fall Risk None identified. Assessment: 23:08 General: Appears in no apparent distress. uncomfortable, obese, well groomed, well st1 developed, Behavior is cooperative, crying. 01/12 01:16 Pain: Pain does not radiate. Pain began 2 hours ago. sm5 Vital Signs: 01/11 22:30 BP 117 / 91; Pulse 97; Resp 16; Pulse Ox 100% on R/A; st1 22:32 BP 121 / 78; Pulse 93; Resp 20 S; Temp 98.1(O); Pulse Ox 100% on R/A; Weight 93.44 kg ab2 (R); Height 5 ft. 6 in. (167.64 cm) (R); Pain 7/10; 01/12 01:14 BP 115 / 87; Pulse 85; Resp 18; Pulse Ox 100% on R/A; sm5 01/11 22:32 Body Mass Index 33.25 (93.44 kg, 167.64 cm) ab2 [place] Coma Score: 01/11 22:30 Eye Response: spontaneous(4). Verbal Response: oriented(5). Motor Response: obeys st1 commands(6). Total: 15. ED Course: 22:28 Patient arrived in ED. es 22:34 Ladonna Siddiqui RN is Primary Nurse. 5 22:35 Ciaran Stone MD is Attending Physician. [facility] 22:36 Triage completed. ab2 22:36 Arm band placed on right wrist. ab2 22:39 Patient has correct armband on for positive identification. Bed in low position. Call ab2 light in reach. Side rails up X 1. physician advisor on. Pulse ox on. NIBP on. 23:05 Basic Metabolic Panel Sent. st1 23:05 Troponin HS Sent. st1 23:05 LFT's Sent. st1 23:05 PT-INR Sent. st1 23:05 Magnesium Sent. st1 23:05 NT PRO-BNP Sent. st1 23:05 CBC with Diff Sent. st1 23:05 XRAY Chest (1 view) Sent. st1 23:06 Lipase Sent. st1 23:43 XRAY Chest (1 view) In Process Unspecified. EDAZ 03 01:15 No provider procedures requiring assistance completed. IV discontinued, intact, sm5 bleeding controlled, No redness/swelling at site. Pressure dressing applied. Patient maintains SpO2 saturation greater than 95% on room air. Administered Medications: 01/11 23:06 Drug: NS 0.9% 1000 ml Route: IV; Rate: 1000 ml; Site: left forearm; st1 23:06 Drug: Pepcid (famotidine) 20 mg Route: IVP; Site: right forearm; st1 23:06 Drug: Zofran (Ondansetron) 4 mg Route: IVP; Site: left forearm; st1 23:07 Drug: GI Cocktail without - (Maalox Suspension 30 ml, Lidocaine Liquid 2 % 15 st1 ml) Route: PO; 01/12 00:28 Drug: Potassium Chloride 40 mEq Route: PO; st1 Outcome: 01:02 Discharge ordered by . [facility] 01:15 Discharged to home ambulatory. 5 01:15 Condition: stable 01:15 Discharge instructions given to patient, Instructed on discharge instructions, follow up and referral plans. Demonstrated understanding of instructions, follow-up care, medications, Prescriptions given X 2. 01:16 Patient left the ED. 5 Signatures: Dispatcher [employer] EDAZ Ladan Simon Maurice, MD MD [facility] Ladonna Siddiqui RN RN 5 [place] 2 Mariel Diaz RN RN st1
--- NOTE | 2022-01-12 01:02 | EDPHYS ---
Physician Documentation [facility] Name: Cheli Jang Age: 36 yrs Sex: Female : 1985 Arrival Date: 01/11/2022 Time: 22:28 Bed 3 Private MD: ED Physician Ciaran Stone HPI: 01/11 23:14 This 36 yrs old Female presents to ER via Wheelchair with complaints of Chest Pain. mh7 23:14 The patient or guardian reports chest pain that is located primarily in the epigastric mh7 area. The pain does not radiate. Associated signs and symptoms: Pertinent positives: nausea, vomiting, Pertinent negatives: cough, diaphoresis, dizziness, headache, lower extremity pain, lower extremity swelling, lightheadedness, near syncope, palpitations, recent travel, shortness of breath, syncope. The chest pain is described as burning, causing indigestion. Duration: The patient or guardian reports a single episode, that is still ongoing, but improving. Modifying factors: The symptoms are alleviated by nothing. the symptoms are aggravated by eating, ETOH. Severity of pain: At its worst the pain was moderate today, in the emergency department the pain has improved moderately. 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 - Social history:: Smoking status: Patient reports the use of cigarette tobacco products, smokes one pack cigarettes per day. Patient uses alcohol, but reports only rare drinking. Patient/guardian denies using street drugs, IV drugs. ROS: 23:14 Constitutional: Negative for fever, chills, and weight loss, Eyes: Negative for injury, mh7 pain, redness, and discharge, ENT: Negative for injury, pain, and discharge, Neck: Negative for injury, pain, and swelling, Respiratory: Negative for shortness of breath, cough, wheezing, and pleuritic chest pain, Back: Negative for injury and pain, : Negative for injury, bleeding, discharge, and swelling, MS/Extremity: Negative for injury and deformity, Skin: Negative for injury, rash, and discoloration, Neuro: Negative for headache, weakness, numbness, tingling, and seizure, Psych: Negative for depression, anxiety, suicide ideation, homicidal ideation, and hallucinations, Allergy/Immunology: Negative for hives, rash, and allergies, Endocrine: Negative for neck swelling, polydipsia, polyuria, polyphagia, and marked weight changes, Hematologic/Lymphatic: Negative for swollen nodes, abnormal bleeding, and unusual bruising. Exam: 23:14 Constitutional: This is a well developed, well nourished patient who is awake, alert, mh7 and in no acute distress. Head/Face: Normocephalic, atraumatic. Eyes: Pupils equal round and reactive to light, extra-ocular motions intact. Lids and lashes normal. Conjunctiva and sclera are non-icteric and not injected. Cornea within normal limits. Periorbital areas with no swelling, redness, or edema. Neck: Trachea midline, no thyromegaly or masses palpated, and no cervical lymphadenopathy. Supple, full range of motion without nuchal rigidity, or vertebral point tenderness. No Meningismus. Chest/axilla: Normal chest wall appearance and motion. Nontender with no deformity. No lesions are appreciated. Cardiovascular: Regular rate and rhythm with a normal S1 and S2. No gallops, murmurs, or rubs. Normal PMI, no JVD. No pulse deficits. Respiratory: Lungs have equal breath sounds bilaterally, clear to auscultation and percussion. No rales, rhonchi or wheezes noted. No increased work of breathing, no retractions or nasal flaring. Back: No spinal tenderness. No costovertebral tenderness. Full range of motion. Skin: Warm, dry with normal turgor. Normal color with no rashes, no lesions, and no evidence of cellulitis. MS/ Extremity: Pulses equal, no cyanosis. Neurovascular intact. Full, normal range of motion. Neuro: Awake and alert, GCS 15, oriented to person, place, time, and situation. Cranial nerves II-XII grossly intact. Motor strength 5/5 in all extremities. Sensory grossly intact. Cerebellar exam normal. Normal gait. Psych: Awake, alert, with orientation to person, place and time. Behavior, mood, and affect are within normal limits. 23:14 Abdomen/GI: Inspection: obese Bowel sounds: normal, in all quadrants, Palpation: mild mh7 abdominal tenderness, in the epigastric area, mass, is not appreciated, rebound tenderness, is not appreciated, voluntary guarding, is not appreciated, involuntary guarding, is not appreciated, no appreciated organomegaly, Rectal exam: the exam is deferred, because of patient request, Indicators: McBurney's point is not tender, Ireland's sign is negative, Rovsing's sign is negative, Obturator sign is negative, Psoas sign is negative, Liver: no appreciated palpable abnormalities, Hernia: not appreciated. Vital Signs: 22:30 BP 117 / 91; Pulse 97; Resp 16; Pulse Ox 100% on R/A; st1 22:32 BP 121 / 78; Pulse 93; Resp 20 S; Temp 98.1(O); Pulse Ox 100% on R/A; Weight 93.44 kg ab2 (R); Height 5 ft. 6 in. (167.64 cm) (R); Pain 7/10; 01/12 01:14 BP 115 / 87; Pulse 85; Resp 18; Pulse Ox 100% on R/A; sm5 01/11 22:32 Body Mass Index 33.25 (93.44 kg, 167.64 cm) ab2 [place] Coma Score: 01/11 22:30 Eye Response: spontaneous(4). Verbal Response: oriented(5). Motor Response: obeys st1 commands(6). Total: 15. MDM: 01/12 00:59 Differential diagnosis: acute myocardial infarction, acute pericarditis, anxiety, mh7 coronary artery disease chest wall pain, costochondritis, esophagitis, gastritis, gastroesophageal reflux disease (GERD), pancreatitis, peptic ulcer disease, pericarditis, pneumonia, pneumothorax. HEART Score: History: Slightly Suspicious (0), ECG: Normal (0), Age: < or = 45 years (0), Risk Factors: No Risk Factors Known (0), Troponin: < or = 1 x Normal Limit (0), Total Score = 0. Data reviewed: vital signs, nurses notes, lab test result(s), cardiac enzymes, CBC, electrolytes, urinalysis, UPT: negative EKG, radiologic studies, plain films. Data interpreted: Pulse oximetry: on room air is 100 %. Interpretation: normal. Counseling: I had a detailed discussion with the patient and/or guardian regarding: the historical points, exam findings, and any diagnostic results supporting the discharge/admit diagnosis, lab results, radiology results, the need for outpatient follow up, to return to the emergency department if symptoms worsen or persist or if there are any questions or concerns that arise at home. Response to treatment: the patient's symptoms have resolved after treatment, the patient's blood pressure is in an acceptable range, mental status has returned to baseline, the patient no longer shows bradycardia, the patient is not short of breath, the patient is not tachycardic, the patient's pain is gone, the patient's temperature has normalized, patient is well hydrated. Tolerating p.o. intake without difficulty. 01:02 Patient medically screened. [facility] 01/11 22:46 Order name: Basic Metabolic Panel; Complete Time: 00:03 [facility] 01/11 22:46 Order name: CBC with Diff; Complete Time: 23:46 [facility] 01/11 22:46 Order name: LFT's; Complete Time: 00:03 [facility] 01/11 22:46 Order name: Magnesium; Complete Time: 00:03 [facility] 01/11 22:46 Order name: NT PRO-BNP; Complete Time: 00:03 [facility] 01/11 22:46 Order name: PT-INR; Complete Time: 23:46 [facility] 01/11 22:46 Order name: Troponin HS; Complete Time: 00:03 [facility] 01/11 22:46 Order name: XRAY Chest (1 view) [facility] 01/11 22:46 Order name: Lipase; Complete Time: 00:03 [facility] 01/12 00:59 Order name: Urine Dipstick-Ancillary; Complete Time: 01:06 EDDE 01/12 00:59 Order name: Urine --Ancillary (enter results); Complete Time: 01:06 cs9 01/11 22:46 Order name: EKG; Complete Time: 22:47 [facility] 01/11 22:46 Order name: Cardiac monitoring; Complete Time: 23:06 [facility] 01/11 22:46 Order name: EKG - Nurse/Tech; Complete Time: 23:06 [facility] 01/11 22:46 Order name: IV Saline Lock; Complete Time: 23:06 [facility] 01/11 22:46 Order name: Labs collected and sent; Complete Time: 23:06 [facility] 01/11 22:46 Order name: O2 Per Protocol; Complete Time: 23:05 [facility] 01/11 22:46 Order name: O2 Sat Monitoring; Complete Time: 23:05 [facility] 01/11 22:46 Order name: Urine Dipstick-Ancillary (obtain specimen); Complete Time: 00:59 [facility] 01/11 22:46 Order name: Urine Test (obtain specimen); Complete Time: 00:59 [facility] Administered Medications: 01/11 23:06 Drug: NS 0.9% 1000 ml Route: IV; Rate: 1000 ml; Site: left forearm; st1 23:06 Drug: Pepcid (famotidine) 20 mg Route: IVP; Site: right forearm; st1 23:06 Drug: Zofran (Ondansetron) 4 mg Route: IVP; Site: left forearm; st1 23:07 Drug: GI Cocktail without - (Maalox Suspension 30 ml, Lidocaine Liquid 2 % 15 st1 ml) Route: PO; 01/12 00:28 Drug: Potassium Chloride 40 mEq Route: PO; st1 Disposition Summary: 01/12/22 01:02 Discharge Ordered Location: Home [facility] Problem: new [facility] Symptoms: are resolved [facility] Condition: Stable [facility] Diagnosis - Gastritis, unspecified [facility] Followup: [facility] - With: Private Physician - When: 1 - 2 days - Reason: Worsening of condition, Recheck today's complaints, Continuance of care, Re-evaluation by your physician Discharge Instructions: - Discharge Summary Sheet [facility] - Gastritis, Adult, [id number] Forms: - Medication Reconciliation Form [facility] - Thank You Letter [facility] - Antibiotic Education [facility] - Prescription Opioid Use [facility] Prescriptions: - ondansetron 4 mg Oral tablet,disintegrating - place 1 tablet by TRANSLINGUAL route every 8 hours As needed; 10 tablet; [facility] Refills: 0, Product Selection Permitted - Pepcid 20 mg Oral Tablet - take 1 tablet by ORAL route every 12 hours for 5 days; 10 tablet; Refills: 0, 7 Product Selection Permitted Signatures: Dispatcher [facility] Ciaran Jaquez MD MD [facility] [place] Shellie, RN RN st1
[2022-01-12 01:03] LABS: Urine Specific Gravity/Preg 1.015 (1.005-1.030)
[2022-01-12 01:21] VITALS: O2SAT 100
[2022-01-12 01:22] VITALS: TEMP 98.1
[2022-01-12 01:24] VITALS: BP 115/87
--- NOTE | 2022-01-12 21:53 | RAD REPORT ---
EXAM DESCRIPTION: RAD - Chest Single View - 01/11/2022 11:44 pm CLINICAL HISTORY: 6 years Female, CHEST PAIN COMPARISON: None FINDINGS: No focal lung consolidation. No pleural effusion. No pneumothorax. Cardiomediastinal silhouette is within normal limits. No acute osseous abnormality. IMPRESSION: No acute cardiopulmonary disease. 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 The interpreting radiologist is fully responsible for the content of the report.
== END 2022-01-12 01:16 | disposition home or self-care (01) ==
LOC: ER 22:25
DX: K29.70 Gastritis, unspecified, without bleeding (principal); F17.210 Nicotine dependence, cigarettes, uncomplicated
CPT/HCPCS: 93005; 85025; 80048; 36415; 83735; 81025; 85610; 80076; 81003; 84484; 83690; 83880; 71045; 99285; J7030; J2405

== ENCOUNTER 2022-07-07 22:05 | Emergency (ER) | payer OTHER ==
--- OUTSIDE RECORDS SUMMARY | 2022-07-07 22:09 | XMS REPORT | Continuity of Care Document ---
:[address] [facility] t Address [address] [place] [address] Care Team Providers Name Role Phone Dilan Tipton DO Attending Clinician Mattie Arguello Attending Clinician MATTIE WELDON Attending Clinician Unavailable Doctor Unassigned, Escudilla Bonita Attending Clinician Unavailable Elvis Oliveros Attending Clinician Payers Payer Name Policy Type Policy Number Effective Date Expiration Date S ource Problems Condition Condition Condition Status Onset Resolution Last Treating Co mments Source Name Details Category Date Date Treatment Clinician Date History of History of Disease Active 0 U nivers bilateral bilateral 07-19 ity of tubal tubal 00:00: [place] ligation ligation [address] [place] [address] Feeling Feeling Disease Active 2019-0 Univers tired tired 07-19 ity of 00:00: [address] Intermenst Intermenst Disease Active 2020-0 U nivers rual heavy rual heavy 07-19 it y of bleeding bleeding 00:00: [address] Vaginal Vaginal Disease Active 2017-11 Univers discharge discharge -06 ity of 00:00: [address] BMI BMI Disease Active 2017-11 Univers 34.0-34.9, 34.0-34.9, 1-06 it y of adult adult 00:00: [address] BV BV Disease Active 2016-11 Univers (bacterial (bacterial 1-30 it y of vaginosis[place]in[place] [facility] Cervicitis Cervicitis Disease Active 2016-11 U nivers 1-30 ity of 00:: [address] Elevated Elevated Disease Active 2016-11 Unive rs blood blood 1-15 ity of pressure pressure 00:00: [place] reading reading 00 Medical without without Branch diagnosis diagnosis of of hypertensi hypertensi on on Lump or Lump or Disease Active 2016-11 Univers mass in mass in 1-15 ity of breast breast 00:00: [place] 00 [facility] Branch Screening Screening Disease Active Uni vers examinatio examinatio 9-15 it y of n for STD n for STD [place] ([place]ually (sexually 00 Medi jesus transmitte transmitte Br anch d disease) d disease) Class 1 Class 1 Disease Active Univers obesity obesity 15 ity of with body with body 00:00: [...] ity of disorder disorder 00:00: [place] 00 [facility] IUD IUD Disease Active Univers (intrauter (intrauter 15 it y of ine ine 00:00: [place] [...] Active Univers ALLERGIE Class ity of S [facility] Social History Social Habit Start Date Stop Date Quantity Comments Source History of tobacco 2007-07-25 Cigarette Smoker University of use 00:00:00 [facility] Exposure to Not sure University of SARS-CoV-2 (event) [facility] Tobacco use and 2020-07-19 2020-07-19 Never used Universit y of exposure 00:00:00 00:00:00 [facility] Cigarettes smoked 2020-07-19 2020-07-19 Univers ity of current (pack per 00:00:00 00:00:00 ) - Reported Branch Cigarette 2020-07-19 2020-07-19 University of pack-years 00:00:00 00:00:00 [facility] Alcohol intake 2020-07-19 2020-07-19 Current University of 00:00:00 00:00:00 non-drinker of [facility] alcohol [facility] (finding) Tobacco Comment 2018-09-15 2018-09-15 one pack x1 wk. [facility] 00:[facility]:00 00:00:00 [facility] Alcohol Comment 2017-07-25 2017-07-25 social Universit y of 00:00:00 00:00:00 [facility] Sex Ass[birth year] At [birth year] Universit y of 00:00:00 00:00:00 [facility] Smoking Status Start Date Stop Date Source Current every day smoker 2020-07-19 00:00:00 [facility]ations Ordered Filled Start Stop Current Ordering Indication Dosage Frequency Signature Comments Components Source Medication Medication Date Date Medication? Clinician (SIG) Name Name meclizine 2020- No 25mg 25 mg, Unive rs (TRAVEL-EAS 04-15 Oral, ity of E 20:45: 20:03 ONCE, 1 [place] (MECLIZINE) 00 :00 dose, Sat Med ical ) tablet 25 04/15/20 at [facility] mg 1545, ACE meclizine 2020-0 Yes [id number] 25mg Take 1 U nivers 25 mg 6-06 tablet by ity of tablet 00:00: mouth 3 [place] 00 (three) Medical times Branch daily as needed for Dizziness. meclizine 2020-0 Yes [id number] 25mg Take 1 U nivers 25 mg 6-06 tablet by ity of tablet 00:00: mouth 3 [place] 00 (three) Medical times Branch daily as needed for Dizziness. meclizine 2020-0 Yes [id number] 25mg Take 1 U nivers 25 mg 6-06 tablet by ity of tablet 00:00: mouth 3 [place] 00 (three) Medical times Branch daily as needed for Dizziness. meclizine 2020-0 Yes [id number] 25mg Take 1 U nivers 25 mg 6-06 tablet by ity of tablet 00:00: mouth 3 [place] 00 (three) Medical times Branch daily as needed for Dizziness. meclizine 2020-0 Yes [id number] 25mg Take 1 U nivers 25 mg 04-15 tablet by ity of tablet 00:00: mouth 3 [place] 00 (three) Medical times Branch daily as needed for Dizziness. amoxicillin 2020- No [id number] 1{tbl} Take 1 Univers -clavulanat 04-1505 tablet by i ty of e 875-125 00:00: 04:59 mouth [place] mg per 00 :00 every 12 Medical tablet (twelve) Branch hours for 7 days. Vital Signs Vital Name Observation Time Observation Value Comments Source Systolic blood 2020-07-19 20:28:00 136 mm[Hg] [facility]iver [facility] Diastolic blood 2020-07-19 20:28:00 91 mm[Hg] Unive [facility] Heart rate 2020-07-19 20:27:00 89 /min Universi ty [facility] Body temperature 2020-07-19 20:27:00 36.5 [place] [facility] Respiratory rate 2020-07-19 20:27:00 16 /min [facility] Body height 2020-07-19 20:27:00 167.6 cm Universi ty [facility] Body weight 2020-07-19 20:27:00 101.152 kg Universi ty [facility] BMI 2020-07-19 20:27:00 35.99 kg/m2 Universi ty [facility] Systolic blood 2020-04-15 19:20:00 134 mm[Hg] Univer [facility] Diastolic blood 2020-04-15 19:20:00 101 mm[Hg] Unive [facility] Heart rate 2020-04-15 19:20:00 105 /min Universi ty [facility] Body temperature 2020-04-15 19:20:00 37.17 [place] [facility] Respiratory rate 2020-04-15 19:20:00 16 /min [facility] Body weight 2020-04-15 19:20:00 97.523 kg Universi ty [facility] BMI 2020-04-15 19:20:00 34.70 kg/m2 Universi ty [facility] Oxygen saturation in 2020-04-15 19:20:00 99 /min [facility] Arterial blood by [facility] Pulse oximetry Branch Procedures Procedure Date / Time Performing Clinician Source Performed ASSIGNMENT OF BENEFITS 2020-07-19 21:10:25 Doctor Unassigned, No [facility] Center Name [facility] THYROID STIMULATING 2020-07-19 21:05:00 Mattie Weldon rsity [facility] HORMONE [facility] CBC WITH DIFF 2020-07-19 21:05:00 Mattie Weldon Universit y [facility] HIV 1/2 AG-AB WITH 2020-07-19 21:05:00 Mattie Weldon [facility] sity [facility] REFLEX [facility] Encounters Start End Encounter Admission Attending Care Care Encounter Source Date/Time Date/Time Type Type Clinicians Facility Department ID 2021-09-06 Emergency [facility] [id number] Univers 23:50:12 ity of [facility] 2021-01-30 2021-01-30 Patient Saeed [facility] [id number] Univers 00:00:00 00:00:00 [id number] i ty [facility] [id number] [place] [id number] De [address] 2020-07-19 2020-07-19 Office Helio [facility] [id number] Univers 15:03:34 16:09:36 Visit Mattie [place] [facility]YSTYRENE [facility]DER [id number] ity [facility] [id number] Dario as MATERNAL [id number] Med ical & CHILD [address] [place] [address] 2020-07-19 2020-07-19 Outpatient R HELIO [facility] [id number] Univers 15:15:00 15:15:00 MATTIE [id number] ity o f [facility] 2020-07-19 2020-07-19 Outpatient R HELIO [facility] [id number] Univers 15:15:00 15:15:00 NEREIDAA ity o f [facility] 2020-07-19 2020-07-19 Orders Doctor EDWARDS [id number] Univers 00:00:00 00:00:00 Only Unassigned, SIM [id number] [facility] [id number] [facility] [id number] [facility] 009 Branch 2020-04-15 2020-04-15 Emergency EDEN Richter [id number] Univers 14:22:28 15:16:00 Elvis Willis [id number] [place] 4.2.7.2.686 [facility] [id number] [facility] 084 Branch Results Test Description Test Time Test Comments Results Result Comments Source H. PYLORI (BREATH) 2022-05-21 15:39:38 Test Item Value Reference Range Interpretation Comme nts H. PYLORI (BREATH) (test code NEGATIVE NEGATIVE UNLESS OTHERWISE INDICATED, ALL = 60704) TESTING PERFORM ED ATCLINICAL PATHOLOGY [email or web address]. [address] [place] [id number] SURGICAL ELASTIC KNITTER HAND FRAME: SREEKANTH GARCIA M.D. CLIA NUMBER [id number] CAP ACCREDITATION N O. [id number] HIV 1/2 AG-AB WITH [id number] 05:19:00 Test Item Value Reference Range Interpretation Comments HIV Negative Negative Semi-quantitative (test code = 80066-9) CARLIE (test code = Non-reactive for HIV-1 CARLIE) antigen and HIV-1/HIV-2 antibodies. ?No laboratory evidence of HIV infection. ?Repeat in 2-4 weeks if acute HIV infection is suspected. [facility] WITH [id number] 05:19:00 Test Item Value Reference Range Interpretation Comments HIV Negative Negative Semi-quantitative (test code = 76903-2) CARLIE (test code = Non-reactive for HIV-1 CARLIE) antigen and HIV-1/HIV-2 antibodies. ?No laboratory evidence of HIV infection. ?Repeat in 2-4 weeks if acute HIV infection is suspected. [facility] [id number] 03:57:00 Test Item Value Reference Range Interpretation Comments TSH (test code = See_Comment Biotin has been [id number]) reported to cau se a negative bias, interpret resul ts relative to pat ient's use of biotin. [Automated mess age] The system [employer] generated this result transmitted ref erence range: 0.45 - 4 .70 mIU/L. The refe rence range was not u sed to interpret this result as normal/abnor mal. Lab Interpretation (test Normal code = 81486-7) [facility] [id number] 03:57:00 Test Item Value Reference Range Interpretation Comments TSH (test code = See_Comment Biotin has been [id number]) reported to cau se a negative bias, interpret resul ts relative to pat tre's use of biotin. [Automated mess age] The system [employer] generated this result transmitted ref erence range: 0.45 - 4 .70 mIU/L. The refe rence range was not u sed to interpret this result as normal/abnor mal. Lab Interpretation (test Normal code = 97970-9) [facility] WITH [id number] 03:09:00 Test Item Value Reference Range Interpretation Comments WBC (test code = See_Comment [Automated message] 3490-2) The system [employer] generated this result transmitted ref erence range: 4.30 - 1 1.10 10*3/?L. The re ference range was not u sed to interpret this result as normal/abnor mal. RBC (test code = See_Comment [Automated message] 399-8) The system [employer] generated this result transmitted ref erence range: [...] RDW-SD (test code 46.5 fL 39-49.9 = 49718-7) RDW-CV (test code 13.6 % 12-15.5 = 788-0) PLT (test code = See_Comment [Automated message] 357-3) The system [employer] generated this result transmitted ref erence range: 166 - 35 8 10*3/?L. The re ference range was not u sed to interpret this result as normal/abnor mal. MPV (test code = 11.2 fL 9.5-12.9 08337-6) NRBC/100 WBC (test See_Comment [Automat ed message] code = 2792960165) The syste m which generated this result transmitted ref erence range: 0.0 - 10 .0 /100 WBCs. The refer ence range was not u sed to interpret this result as normal/abnor mal. NRBC x10^3 (test <0.01 See_Comment [Automated message] code = 3032574939) The syste m which generated this result transmitted ref erence range: 10*3/?L. The reference range was not used to interpr et this result as normal/abnormal . GRAN MAT (NEUT) % 63.9 % (test code = 770-8) IMM GRAN % (test 0.20 % code = 3272744674) LYMPH % (test code 26.0 % = 736-9) MONO % (test code 6.9 % = 5905-5) EOS % (test code = 2.4 % 713-8) BASO % (test code 0.6 % = 706-2) GRAN MAT 5.99 10*3/uL 1.88-7.09 x10^3(ANC) (test code = 0212303922) IMM GRAN x10^3 <0.03 0-0.06 (test code = 8374513102) LYMPH x10^3 (test 2.44 10*3/uL 1.32-3.29 code = 731-0) MONO x10^3 (test 0.65 10*3/uL 0.33-0.92 code = 742-7) EOS x10^3 (test 0.23 10*3/uL 0.03-0.39 code = 711-2) BASO x10^3 (test 0.06 10*3/uL 0.01-0.07 code = 704-7) [facility] WITH [id number] 03:09:00 Test Item Value Reference Range Interpretation Comments WBC (test code = See_Comment [Automated message] 6690-2) The system whic h generated this result transmitted ref erence range: 4.30 - 1 1.10 10*3/?L. The re ference range was not u sed to interpret this result as normal/abnor mal. RBC (test code = See_Comment [Automated message] 789-8) The system [employer] generated this result transmitted ref erence range: [...] RDW-SD (test code 46.5 fL 39-49.9 = 31094-6) RDW-CV (test code 13.6 % 12-15.5 = 788-0) PLT (test code = See_Comment [Automated message] 777-3) The system [employer] generated this result transmitted ref erence range: 166 - 35 8 10*3/?L. The re ference range was not u sed to interpret this result as normal/abnor mal. MPV (test code = 11.2 fL 9.5-12.9 99043-4) NRBC/100 WBC (test See_Comment [Automat ed message] code = 7645629046) The syste m which generated this result transmitted ref erence range: 0.0 - 10 .0 /100 WBCs. The refer ence range was not u sed to interpret this result as normal/abnor mal. NRBC x10^3 (test <0.01 See_Comment [Automated message] code = 4768880837) The syste m which generated this result transmitted ref erence range: 10*3/?L. The reference range was not used to interpr et this result as normal/abnormal . GRAN MAT (NEUT) % 63.9 % (test code = 770-8) IMM GRAN % (test 0.20 % code = 8207285674) LYMPH % (test code 26.0 % = 736-9) MONO % (test code 6.9 % = 5905-5) EOS % (test code = 2.4 % 713-8) BASO % (test code 0.6 % = 706-2) GRAN MAT 5.99 10*3/uL 1.88-7.09 x10^3(ANC) (test code = 3093245508) IMM GRAN x10^3 <0.03 0-0.06 (test code = 3118218145) LYMPH x10^3 (test 2.44 10*3/uL 1.32-3.29 code = 731-0) MONO x10^3 (test 0.65 10*3/uL 0.33-0.92 code = 742-7) EOS x10^3 (test 0.23 10*3/uL 0.03-0.39 code = 711-2) BASO x10^3 (test 0.06 10*3/uL 0.01-0.07 code = 704-7) [facility]
[2022-07-07 22:29] LABS: Urine Blood Trace-lysed (Negative); Urine Glucose Negative (Negative); Urine Protein Negative (Negative)
[2022-07-07] MEDS ORDERED: ONDANSETRON 4 MG/2 ML VIAL ONE (23:29)
[2022-07-07] MEDS ORDERED: LORAZEPAM 1 MG TABLET ONE (23:29)
[2022-07-08 00:02] LABS: Absolute Lymphocytes (CBC) 1.3 K/uL (0.7-4.9); Hematocrit 42.4 % (36.0-45.0); Lymphocytes % 11.5 % (15.3-44.8); MCV 91.9 fL (80-100); MPV 8.9 fL (7.6-11.3); RBC Red Blood Cell Count 4.61 M/uL (3.86-4.86)
[2022-07-08 00:18] LABS: ALT/SGPT 28 U/L (12-78); AST/SGOT 13 U/L (15-37); Albumin 3.6 g/dL (3.4-5.0); Alkaline Phosphatase 95 U/L (45-117); BUN Blood Urea Nitrogen 9 mg/dL (7-18); Bicarbonate 25 mmol/L (21-32); Bilirubin Total 0.3 mg/dL (0.2-1.0); Glomerular Filtration Rate 116 ml/min (=/>90); Glucose Level 122 mg/dL (74-106); Magnesium 2.2 mg/dL (1.8-2.4); Potassium 3.2 mmol/L (3.5-5.1); Protein, Total 7.6 g/dL (6.4-8.2); Sodium Level 140 mmol/L (136-145); Troponin High Sensitivity 29.5 pg/mL (<58.9)
[2022-07-08 00:19] LABS: Bilirubin Direct < 0.1 mg/dL (0-0.2)
[2022-07-08] MEDS ORDERED: POTASSIUM CL SA 10 MEQ TAB PO ONE (01:29)
--- NOTE | 2022-07-08 02:38 | ER ---
Nurse's Notes [facility] Dev Name: Cheli Jang Age: 37 yrs Sex: Female : 1985 Arrival Date: 07/07/2022 Time: 22:14 Bed 8 Private MD: Diagnosis: Paresthesia of skin;Dizziness and giddiness Presentation: 07/07 22:16 Chief complaint: EMS states: they were toned out for report of pt with tingling all bb over and dizziness starting today. Coronavirus screen: At this time, the client does not indicate any symptoms associated with coronavirus-19. Ebola Screen: No symptoms or risks identified at this time. Initial Sepsis Screen: Does the patient meet any 2 criteria? No. Patient's initial sepsis screen is negative. Does the patient have a suspected source of infection? No. Patient's initial sepsis screen is negative. Risk Assessment: Do you want to hurt yourself or someone else? Patient reports no desire to harm self or others. Onset of symptoms was July 07, 2022. 22:16 Method Of Arrival: EMS: [facility] bb 22:16 Acuity: EUGENIO 3 bb Triage Assessment: 22:29 General: Appears in no apparent distress. Behavior is anxious. General: Reports "We tw5 were sitting on the couch watching a movie, I took a hit of my vape pen and all of a sudden I felt like I was going to and something wasn't right. I felt tingly all over and I honestly thought I was going to have a heart attack. I got really nauseous and was dry heaving. I feel really thirsty.". Neuro: Level of Consciousness is awake, alert, obeys commands. Cardiovascular: Capillary refill < 3 seconds. Respiratory: Airway is patent Trachea midline Respiratory effort is even, unlabored. Derm: Skin is intact, is healthy with good turgor. 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 - Social history:: Smoking status: Patient denies any tobacco usage or history of. Screenin:32 Abuse screen: Denies threats or abuse. Denies injuries from another. Nutritional hb screening: No deficits noted. Tuberculosis screening: No symptoms or risk factors identified. Fall Risk None identified. Assessment: 23:32 General: Appears in no apparent distress. Behavior is calm, cooperative. Pain: Denies hb pain. Neuro: Level of Consciousness is awake, alert, obeys commands, Oriented to person, place, time, situation. Cardiovascular: Patient's skin is warm and dry. Respiratory: Respiratory effort is even, unlabored, Respiratory pattern is regular, symmetrical. GI: No signs and/or symptoms were reported involving the gastrointestinal system. : No signs and/or symptoms were reported regarding the genitourinary system. EENT: No signs and/or symptoms were reported regarding the EENT system. Derm: Skin is pink, warm \\T\\ dry. Musculoskeletal: No signs and/or symptoms reported regarding the musculoskeletal system. 07/08 01:27 Reassessment: Patient states feeling better. Patient states symptoms have improved. tw5 Vital Signs: 07/07 22:16 BP 151 / 97; Pulse 93; Resp 17 S; Temp 98(O); Pulse Ox 100% on R/A; Weight 94.35 kg bb (R); Height 5 ft. 6 in. (167.64 cm) (R); 22:29 BP 118 / 71; Pulse 70; Resp 18; Pulse Ox 99% on R/A; tw5 23:32 BP 123 / 75; Pulse 64; Resp 19; Temp 18; Pulse Ox 99% ; hb 07/08 01:27 BP 125 / 74; Pulse 77; Resp 18; Temp 98.1; Pulse Ox 99% on R/A; tw5 07/07 22:16 Body Mass Index 33.57 (94.35 kg, 167.64 cm) bb ED Course: 07/07 22:14 Patient arrived in ED. bb 22:20 [facility]ugh [facility]C [facility] kb 22:20 Travis Stafford MD is Attending Physician. kb 22:20 Triage completed. bb 22:20 Arm band placed on Patient placed in an exam room, on a stretcher, on pulse oximetry. bb 22:28 Ana Lilia Pablo is Primary Nurse. tw5 23:08 XRAY Chest (1 view) In Process Unspecified. EDMS 23:32 Patient has correct armband on for positive identification. hb 23:34 Inserted saline lock: 22 gauge in right wrist, using aseptic technique. Blood collected.hb 07/08 00:09 Notified Nurse Practitioner and/or Physician Night Shift of a critical lab result(s), patricia DDimer of [address] Deborah Jeison SERVICE LINE COORDINATOR notified. 01:19 CT Chest For PE Angio In Process Unspecified. EDMS 02:51 No provider procedures requiring assistance completed. IV discontinued, intact, tw5 bleeding controlled, No redness/swelling at site. Pressure dressing applied. Administered Medications: 07/07 23:22 Drug: Ativan (LORazepam) 1 mg Route: PO; hb 07/08 01:26 Follow up: Response: No adverse reaction; Anxiety decreased tw5 07/07 23:43 Drug: Zofran (Ondansetron) 4 mg Route: IVP; Site: right wrist; hb 07/08 01:26 Follow up: Response: No adverse reaction tw5 01:26 Drug: Potassium Chloride 20 mEq Route: PO; tw5 Medication: 07/07 23:32 VIS not applicable for this client. hb Outcome: 07/08 02:38 Discharge ordered by . kdr 02:51 Discharged to home ambulatory. tw5 02:51 Condition: improved 02:51 Discharge instructions given to patient, Instructed on discharge instructions, follow up and referral plans. Demonstrated understanding of instructions, follow-up care. 02:51 Patient left the ED. tw5 Signatures: Dispatcher [employer] EDDeborah Bradley, ALDO KLEIN-Travis Quick MD MD kdr Ballard, Brenda RN RN Shila Helms, SADE RN Ana Lilia Tirado tw5
--- NOTE | 2022-07-08 02:38 | EDPHYS ---
Physician Documentation [facility] Name: Cheli Jang Age: 37 yrs Sex: Female : 1985 Arrival Date: 07/07/2022 Time: 22:14 Bed 8 Private MD: ED Physician Travis Stafford HPI: 07/08 00:45 This 37 yrs old Female presents to ER via EMS with complaints of tingling all over, kb Dizziness. 00:45 The patient presents with a history of heart racing. Context: The symptoms occur at kb rest. Onset: The symptoms/episode began/occurred just prior to arrival. Duration: The patient or guardian reports a single episode, that is now resolved. Modifying factors: The symptoms are aggravated by nothing. The symptoms are alleviated by nothing. Associated signs and symptoms: Pertinent positives: anxiety, SOB. Severity of symptoms: At their worst the symptoms were moderate in the emergency department the symptoms have improved. The patient has not experienced similar symptoms in the past. The patient has not recently seen a physician. Patient states she was watching TV when she developed palpitations, tingling all over, shaking. States she has some nausea now. Reports symptoms got much better after she calmed down.. 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 - Social history:: Smoking status: Patient denies any tobacco usage or history of. ROS: 07/08 00:44 Constitutional: Negative for fever, chills, and weight loss. kb Cardiovascular: Positive for palpitations, Negative for chest pain, edema, orthopnea. Respiratory: Positive for shortness of breath. Neuro: Positive for tingling. All other systems are negative. Exam: 00:45 Constitutional: This is a well developed, well nourished patient who is awake, alert, kb and in no acute distress. Head/Face: Normocephalic, atraumatic. ENT: Moist Mucous membranes Cardiovascular: Regular rate and rhythm with a normal S1 and S2. No gallops, murmurs, or rubs. No pulse deficits. Respiratory: Respirations even and unlabored. No increased work of breathing. Talking in full sentences Abdomen/GI: Soft, non-tender. No distention Skin: Warm, dry with normal turgor. Normal color. MS/ Extremity: Pulses equal, no cyanosis. Neurovascular intact. Full, normal range of motion. Neuro: Awake and alert, GCS 15, oriented to person, place, time, and situation. Moves all extremities. Normal gait. Psych: Awake, alert, with orientation to person, place and time. Behavior, mood, and affect are within normal limits. 00:45 Constitutional: The patient appears anxious. 00:47 ECG was reviewed by the Attending Physician. kb Vital Signs: 07/07 22:16 BP 151 / 97; Pulse 93; Resp 17 S; Temp 98(O); Pulse Ox 100% on R/A; Weight 94.35 kg bb (R); Height 5 ft. 6 in. (167.64 cm) (R); 22:29 BP 118 / 71; Pulse 70; Resp 18; Pulse Ox 99% on R/A; tw5 23:32 BP 123 / 75; Pulse 64; Resp 19; Temp 18; Pulse Ox 99% ; hb 07/08 01:27 BP 125 / 74; Pulse 77; Resp 18; Temp 98.1; Pulse Ox 99% on R/A; tw5 07/07 22:16 Body Mass Index 33.57 (94.35 kg, 167.64 cm) bb MDM: 07/07 22:20 Patient medically screened. kb 07/08 00:44 Data reviewed: vital signs, nurses notes. Data interpreted: Pulse oximetry: on room air kb is 99 %. Interpretation: normal. 01:09 Transition of care: After a detail discussion of the patient's case, care is kb transferred to Travis Stafford MD. 07/07 22:29 Order name: Urine Dipstick-Ancillary; Complete Time: 22:40 EDMS 07/07 22:34 Order name: Urine --Ancillary (enter results); Complete Time: 23:10 wm 07/07 22:50 Order name: Basic Metabolic Panel; Complete Time: 00:20 kb 07/07 22:50 Order name: CBC with Diff; Complete Time: 00:05 kb 07/07 22:50 Order name: D-Dimer; Complete Time: 00:13 kb 07/07 22:50 Order name: LFT's; Complete Time: 00:20 kb 07/07 22:50 Order name: Magnesium; Complete Time: 00:20 kb 07/07 22:50 Order name: Troponin HS; Complete Time: 00:20 kb 07/07 22:50 Order name: XRAY Chest (1 view) kb 07/07 22:50 Order name: EKG; Complete Time: 22:52 kb 07/08 00:13 Order name: CT Chest For PE Angio kb 07/07 22:50 Order name: Cardiac monitoring; Complete Time: 23:18 kb 07/07 22:50 Order name: EKG - Nurse/Tech; Complete Time: 23:18 kb 07/07 22:50 Order name: IV Saline Lock; Complete Time: 23:44 kb 07/07 22:50 Order name: Labs collected and sent; Complete Time: 23:44 kb 07/07 22:50 Order name: O2 Per Protocol; Complete Time: 23:18 kb 07/07 22:50 Order name: O2 Sat Monitoring; Complete Time: 23:18 kb EC:47 Rate is 69 beats/min. Rhythm is regular. QRS [place] is Normal. CT interval is normal at kb 146 msec. QRS interval is normal at 86 msec. QT interval is normal at 432 msec. Administered Medications: 07/07 23:22 Drug: Ativan (LORazepam) 1 mg Route: PO; 07/08 01:26 Follow up: Response: No adverse reaction; Anxiety decreased tw5 07/07 23:43 Drug: Zofran (Ondansetron) 4 mg Route: IVP; Site: right wrist; 07/08 01:26 Follow up: Response: No adverse reaction tw5 01:26 Drug: Potassium Chloride 20 mEq Route: PO; tw5 Disposition: 02:37 Co-signature as Attending Physician, Travis Stafford MD I agree with the assessment and kdr plan of care. Disposition Summary: 07/08/22 02:38 Discharge Ordered Location: Home kdr Problem: new kdr Symptoms: have improved kdr Condition: Stable kdr Diagnosis - Paresthesia of skin kdr - Dizziness and giddiness kdr Followup: kdr - With: Private Physician - When: 1 - 2 days - Reason: If symptoms return, Further diagnostic work-up, Recheck today's complaints, Continuance of care, Re-evaluation by your physician Discharge Instructions: - Discharge Summary Sheet kdr - Palpitations, [id number] kdr - Paresthesia, [id number] kdr - Dizziness, [id number] kdr Forms: - Medication Reconciliation Form kdr - Thank You Letter kdr Signatures: Dispatcher [employer] EDDeborah Bradley, Travis Alaniz MD MD kdr Ballard, Brenda, RN RN Shila Helms RN RN Ana Lilia Tirado tw5
[2022-07-08 04:33] VITALS: O2SAT 99
[2022-07-08 04:38] VITALS: BP 125/74; TEMP 98.1
--- NOTE | 2022-07-08 10:20 | EKG ---
Test Date: 2022-07-07 Test Time: 23:11:16 [employer] Trolley: BLANE MEASUREMENT RESULTS: Intervals: Rate: 69 WA: 146 QRSD: 86 QT: 404 QTc: 432 Points: P: 50 WA: 146 QRS: 31 T: 40 INTERPRETIVE STATEMENTS: Normal sinus rhythm Normal ECG Compared to ECG 01/11/2022 22:55:08 No significant changes Electronically Signed On 07-08-22 10:19:56 CDT by Amado Vallejo
--- NOTE | 2022-07-08 14:56 | RAD REPORT ---
EXAM DESCRIPTION: RAD - Chest Single View - 07/07/2022 11:07 pm CLINICAL HISTORY: 37-year-old female with palpitations. TECHNIQUE: Single view, AP portable chest was obtained. COMPARISON: 01/11/2022. FINDINGS: Unremarkable cardiac and mediastinal silhouette. Heart size is normal. Lungs are clear without focal opacity, pneumothorax or pleural effusions. The visualized bones are within normal limits. IMPRESSION: No acute cardiopulmonary abnormalities. Electronically signed by: Ladonna Cyr MD 07/07/2022 11:30 PM CDT Due to temporary technical issues with the PACS/Fluency reporting system, reports are being signed by the in house radiologists without review as a courtesy to insure prompt reporting. The interpreting radiologist is fully responsible for the content of the report.
--- NOTE | 2022-07-08 14:59 | RAD REPORT ---
EXAM DESCRIPTION: CT - Chest For Pe Angio - 07/08/2022 6:50 am CLINICAL HISTORY: Palpitations, elevated DD COMPARISON: None Available. TECHNIQUE: CTA of the chest obtained following the uncomplicated intravenous administration of iodin ated contrast. 3-D/MIP reformatted images of the chest available for evaluation. This exam was perfor med according to our departmental dose-optimization program, which includes automated exposure contro l, adjustment of the mA and/or kV according to patient size and/or use of iterative reconstruction te chnique. FINDINGS: Chest: Pulmonary arteries: Contrast bolus is adequate.No filling defects identified in the pulmonary arterie s to suggest pulmonary embolus. Thyroid: No abnormalities of the visualized thyroid. Great Vessels: Great vessels have normal anatomic configuration. Thoracic Aorta: No abnormalities of the thoracic aorta identified. Heart: No cardiomegaly, significant pericardial effusion, or coronary artery atherosclerosis Lymph Nodes: No enlarged mediastinal lymph nodes identified. Esophagus: No abnormalities of the esophagus identified. Other: No additional findings. Lungs: No airspace opacities identified. Pleura: No pleural effusion or pneumothorax. Trachea/Airways: No abnormalities of the visualized trachea or airways. Bones: Mild endplate spondylosis. Upper Abdomen: Limited images of the upper abdomen demonstrate no definite abnormalities of visualize d portions of the liver, gallbladder, pancreas, spleen, adrenal glands, or kidneys. Prior cholecystec ronni. IMPRESSION: No pulmonary embolus. No acute pneumonic process. Electronically signed by: Noel Irwin 07/08/2022 2:05 AM CDT Due to temporary technical issues with the PACS/Fluency reporting system, reports are being signed by the in house radiologists without review as a courtesy to insure prompt reporting. The interpreting radiologist is fully responsible for the content of the report.
== END 2022-07-08 02:51 | disposition home or self-care (01) ==
LOC: ER 22:05
DX: R20.2 Paresthesia of skin (principal); R42 Dizziness and giddiness; R00.2 Palpitations
CPT/HCPCS: 93005; 85025; 80048; 36415; 83735; 81025; 85379; 80076; 81003; 84484; 71275; 71045; Q9967; J2405; 96374; 99284

== ENCOUNTER 2023-09-20 08:48 | Emergency (ER) | payer BC, OTHER ==
--- OUTSIDE RECORDS SUMMARY | 2023-09-20 08:51 | XMS REPORT | Continuity of Care Document ---
:1985 Author Organization [facility] [place] [facility] t Address [address] [facility]. [place] [place] [address] Care Team Providers Name Role Phone Radha Rinaldi Primary Care Physician Doctor Unassigned, [place] Attending Clinician Unavailable OJY MCFARLANE Attending Clinician Unavailable NEVA ELAM Attending Clinician Unavailable Neva Ramires Attending Clinician [phone] Dilan Tipton DO Attending Clinician Mattie Arguello Attending Clinician MATTIE CADET Attending Clinician Unavailable Elvis Oilveros Attending Clinician JOY MCFARLANE Admitting Clinician Unavailable Payers Payer Name Policy Type Policy Number Effective Date Expiration Date S ource Problems Condition Condition Condition Status Onset Resolution Last Treating Co mments Source Name Details Category Date Date Treatment Clinician Date History of History of Disease Active 2019- U nivers bilateral bilateral 07-19 ity of tubal tubal 00:00: [place] ligation ligation 00 Medica l Branch Feeling Feeling Disease Active 2019- Univers tired tired 07-19 ity of 00:00: [place] 00 Medical Branch Intermenst Intermenst Disease Active 2019-0 U nivers rual heavy rual heavy 07-19 it y of bleeding bleeding 00:00: [place] 00 Medical Branch Vaginal Vaginal Disease Active 2017-11 Univers discharge discharge -06 ity of 00:00: Medical Branch BMI BMI Disease Active 2017-11 Univers 34.0-34.9, 34.0-34.9, 1-06 it y of adult adult 00:00: [place] [facility] BV BV Disease Active 2016-11 Univers (bacterial (bacterial 1-30 it y of vaginosis) vaginosis) [place] [facility] [place] Cervicitis Cervicitis Disease Active 2016-11 U nivers 1-30 ity of 00:00: [place] [facility] Elevated Elevated Disease Active 2016-11 Unive rs blood blood 1-15 ity of pressure pressure 00:00: [place] reading reading 00 Medical without without Branch diagnosis diagnosis of of hypertensi hypertensi on on Lump or Lump or Disease Active 2016-11 Univers mass in mass in 1-15 ity of breast breast 00:00: [place] [facility] IUD IUD Disease Active Univers (intrauter (intrauter 9-15 it y of ine ine 00:00: [place] device) in device) in [address] Branch Screening Screening Disease Active Uni vers examinatio examinatio 9-15 it y of n for STD n for STD 00:00: Fern s (sexually (sexually 00 [facility] transmitte transmitte Br anch d disease) d disease) Class 1 Class 1 Disease Active Univers obesity obesity 9-15 ity of with body with body 00:00: Fern freitas mass index mass index 00 Me dical (BMI) of (BMI) of Branch 34.0 to 34.0 to 34.9 in 34.9 in adult, adult, unspecifie unspecifie d obesity d obesity type, type, unspecifie unspecifie d whether d whether serious serious comorbidit comorbidit y present y present Tobacco Tobacco Disease Active Univers use use 9-15 ity of disorder disorder 00:00: [place] [facility] IUD IUD Disease Active Univers (intrauter (intrauter [...] Active Univers ALLERGIE Class ity of S [facility] Social History Social Habit Start Date Stop Date Quantity Comments Source History of tobacco 2007-07-25 Cigarette Smoker University of use 00:00:00 [facility] History SDOH University o f [facility] SD[facility] University o f Alcohol Std Drinks [facility] History [facility] o f Alcohol Binge [place] [facility] [place] Gender identity Universit y of [facility] Sexual orientation [facility] Alcohol intake 2023-07-06 2023-07-06 0 /d University of 00:00:00 00:00:00 [facility] History of Social 2022-08-30 2022-08-[address] function 00:00:00 00:00:00 Hospital Exposure to 2022-08-04 2022-08-14 Not sure University of SARS-CoV-2 (event) 00:00:00 13:53:00 [facility] Tobacco use and 2022-08-14 2022-08-14 Smokeless Universit y of exposure 00:00:00 00:00:00 tobacco non-user [facility] Cigarettes smoked 2022-08-14 2022-08-14 [facility] ity of current (pack per 00:00:00 00:00:00 [facility] ) - Reported Branch Cigarette 2022-08-14 2022-08-14 University of pack-years 00:00:00 00:00:00 [facility] Tobacco Comment 2022-08-14 2022-08-14 one pack x1 wk. Univ ersity of 00:00:00 00:00:00 [facility] Alcohol Comment 2017-07-25 2017-07-25 social Universit y of 00:00:00 00:00:00 [facility] Sex Ass[birth year] At [birth year] [place] 00:00:00 00:00:00 Hospital Smoking Status Start Date Stop Date Source Tobacco smoking consumption Meth odist [facility] unknown Smokes tobacco daily 2022-08-14 00:00:00 Univers ity of [facility] Medications Ordered Filled Start Stop Current Ordering Indication Dosage Frequency Signature Comments Components Source Medication Medication Date Date Medication? Clinician (SIG) Name Name ondansetron 2022- No 4mg 4 mg, Slow Univers (ZOFRAN 07-06 IV Push, ity of (PF)) 21:30: 21:26 ONCE, 1 [place] injection 4 00 :00 dose, On Medi jesus mg Sun Branch 07/06/23 at 1630, ACE ciprofloxac 2022- Yes [id number] 500mg Take 1 Univers in HCl 500 07-06 tablet by ity of mg tablet 00:00: 04:59 mouth in [place] 00 :00 the Medical morning Branch and 1 tablet in the evening. Do all this for 7 days. propranoloL 2021-11 Yes 10mg Take 10 mg Univers 10 mg 0-05 by mouth ity of tablet 14:22: in the [address] Medical and 10 mg Branch in the evening. propranoloL 2021-11 Yes 10mg Take 10 mg Univers 10 mg 0-05 by mouth ity of tablet 14:22: in the [address] Medical and 10 mg Branch in the evening. propranoloL 2021-11 Yes 10mg Take 10 mg Univers 10 mg 0-05 by mouth ity of tablet 14:22: in the [address] Medical and 10 mg Branch in the evening. propranoloL 2021-11 Yes 10mg Take 10 mg Univers 10 mg 0-05 by mouth ity of tablet 14:22: in the [address] Medical and 10 mg Branch in the evening. pantoprazol 2021-11 Yes Take by Uni vers e sodium 0-05 mouth. ity of (PROTONIX 14:07: [place] ORAL) [address] [place] [address] pantoprazol 2021-11 Yes Take by Uni vers e sodium 0-05 mouth. ity of (PROTONIX 14:07: [place] ORAL) [address] [place] [address] Branch pantoprazol 2021-11 Yes Take by Uni vers e sodium 0-05 mouth. ity of (PROTONIX 14:07: [place] ORAL) [address] [place] [address] pantoprazol 2021-11 Yes Take by Uni vers e sodium 0-05 mouth. ity of (PROTONIX 14:07: [place] ORAL) [address] [place] [address] levonorgest 2021-11 Yes [id number] 1{tbl} Take 1 Univers rel-ethinyl 0-05 tablet by ity of estradiol 00:00: [place] (SRONYX[place] 00 the Medical 0.1-20 morning. Branch mg-mcg per tablet levonorgest 2021-11 Yes [id number] 1{tbl} Take 1 Univers rel-ethinyl 0-05 tablet by [place]y of estradiol 00:00: [place] (SRONYX[place] 00 the Medical 0.1-20 morning. Branch mg-mcg per tablet levonorgest 2021-11 Yes [id number] 1{tbl} Take 1 Univers rel-ethinyl 0-05 tablet by [place]y of estradiol 00:00: [place] (SRONYX[place] 00 the Medical 0.1-20 morning. Branch mg-mcg per tablet levonorgest 2021-11 Yes [id number] 1{tbl} Take 1 Univers rel-ethinyl 0-05 tablet by [place]y of estradiol 00:00: [place] (SRONYX[place] 00 the Medical 0.1-20 morning. Branch mg-mcg per tablet meclizine 2020-0 2020- No 25mg 25 mg, Unive rs (TRAVEL-EAS 6-06 06-06 Oral, ity of E 20:45: 20:03 ONCE, 1 [place] (MECLIZINE) 00 :00 dose, Sat Med ical ) tablet 25 04/15/20 at [facility] mg 1545, ACE meclizine 2020-0 Yes [id number] 25mg Take 1 U nivers 25 mg 6-06 tablet by ity of tablet 00:00: mouth 3 (three) Medical times Branch daily as needed for Dizziness. meclizine 2020-0 Yes [id number] 25mg Take 1 U nivers 25 mg 6-06 tablet by ity of tablet 00:00: mouth 3 (three) Medical times Branch daily as needed for Dizziness. meclizine 2020-0 Yes [id number] 25mg Take 1 U nivers 25 mg 6-06 tablet by ity of tablet 00:00: mouth 3 (three) Medical times Branch daily as needed for Dizziness. meclizine 2020-0 Yes [id number] 25mg Take 1 U nivers 25 mg 6-06 tablet by ity of tablet 00:00: mouth 3 (three) Medical times Branch daily as needed for Dizziness. meclizine 2020-0 Yes [id number] 25mg Take 1 U nivers 25 mg 6-06 tablet by ity of tablet 00:00: mouth 3 00 (three) Medical times Branch daily as needed for Dizziness. meclizine 2020-0 Yes [id number] 25mg Take 1 U nivers 25 mg 6-06 tablet by ity of tablet 00:00: mouth 3 (three) Medical times Branch daily as needed for Dizziness. meclizine 2020-0 Yes [id number] 25mg Take 1 U nivers 25 mg 6-06 tablet by ity of tablet 00:00: mouth 3 00 (three) Medical times Branch daily as needed for Dizziness. meclizine 2020-0 Yes [id number] 25mg Take 1 U nivers 25 mg 6-06 tablet by ity of tablet 00:00: mouth 3 00 (three) Medical times Branch daily as needed for Dizziness. meclizine 2020-0 Yes [id number] 25mg Take 1 U nivers 25 mg 6-06 tablet by ity of tablet 00:00: mouth 3 (three) Medical times Branch daily as needed for Dizziness. meclizine 2020-0 Yes [id number] 25mg Take 1 U nivers 25 mg 6-06 tablet by ity of tablet 00:00: mouth 3 00 (three) Medical times Branch daily as needed for Dizziness. amoxicillin 2020-0 2020- No [id number] 1{tbl} Take 1 Univers -clavulanat 6-04 15-14 28602 tablet by i ty of e 875-125 00:00: 04:59 mouth [place] mg per 00 :00 every 12 Medical tablet (twelve) Branch hours for 7 days. Vital Signs Vital Name Observation Time Observation Value Comments Source Systolic blood 2023-07-06 20:38:00 149 mm[Hg] Univer sity [facility] Diastolic blood 2023-07-06 20:38:00 88 mm[facility]Hg] [facility] 2023-07-06 20:38:00 75 /min Universi [facility] Body temperature 2023-07-06 20:38:00 36.61 Carmita Univ ersity of [place] [facility] Respiratory rate 2023-07-06 20:38:00 16 /min Univ ersity of [place] [facility] [place] Body height 2023-07-06 20:38:00 167.6 cm Universi ty of [place] [facility] [place] Body weight 2023-07-06 20:38:00 96.616 kg Universi ty of [place] [facility] BMI 2023-07-06 20:38:00 34.38 kg/m2 Universi ty of [facility] Oxygen saturation in 2023-07-06 20:38:00 100 /min University Arterial blood by [facility] Pulse oximetry Branch Systolic blood 2022-08-14 18:54:00 139 mm[Hg] Univer sity of pressure [place] [facility] [place] Diastolic blood 2022-08-14 18:54:00 92 mm[Hg] Unive rsity of pressure [facility] Heart rate 2022-08-14 18:53:00 83 /min Universi ty of [facility] Body temperature 2022-08-14 18:53:00 36.28 Carmita Univ ersity of [facility] Respiratory rate 2022-08-14 18:53:00 18 /min Univ ersity of [facility] Body height 2022-08-14 18:53:00 167.6 cm Universi ty of [place] [facility] [place] Body weight 2022-08-14 18:53:00 95.255 kg Universi ty of [facility] BMI 2022-08-14 18:53:00 33.89 kg/m2 Universi ty of [facility] Systolic blood 2020-07-19 20:28:00 136 mm[Hg] Univer sity of pressure [facility] Diastolic blood 2020-07-19 20:28:00 91 mm[Hg] Unive rsity of pressure [facility] Branch Heart rate 2020-07-19 20:27:00 89 /min Universi ty of [place] [facility] Body temperature 2020-07-19 20:27:00 36.5 Carmita Univ ersity of [facility] [place] [facility] Branch Respiratory rate 2020-07-19 20:27:00 16 /min Univ ersity of [facility] Body height 2020-07-19 20:27:00 167.6 cm Universi ty of [place] [facility] [place] Body weight 2020-07-19 20:27:00 101.152 kg Universi ty of [place] [facility] BMI 2020-07-19 20:27:00 35.99 kg/m2 Universi ty [facility] Systolic blood 2020-04-15 19:20:00 134 mm[Hg] Univer sity of pressure [facility] Diastolic blood 2020-04-15 19:20:00 101 mm[Hg] Unive rsity of pressure [facility] Heart rate 2020-04-15 19:20:00 105 /min Universi [facility] Body temperature 2020-04-15 19:20:00 37.17 Carmita [facility] Respiratory rate 2020-04-15 19:20:00 16 /min [facility] Body weight 2020-04-15 19:20:00 97.523 kg Universi [facility] BMI 2020-04-15 19:20:00 34.70 kg/m2 [facility] Oxygen saturation in 2020-04-15 19:20:00 99 /min [facility] blood by [facility] Pulse oximetry Branch Procedures Procedure Date / Time Performing Clinician Source Performed EKG-12 LEAD 2023-07-06 22:07:31 Mack [facility] ASSIGNMENT OF BENEFITS 2023-07-06 21:20:28 Doctor Unassigned, No [facility] Name [facility] Branch LIPASE 2023-07-06 20:49:00 Mack [facility] TROPONIN I 2023-07-06 20:49:00 Mack [facility] COMP. METABOLIC PANEL 2023-07-06 20:49:00 Joy Mcfarlane [facility] ([id number]) [facility] CBC WITH DIFF 2023-07-06 20:49:00 Mack [facility] URINALYSIS 2023-07-06 20:49:00 Mack [facility] CONSENT/REFUSAL FOR 2023-07-06 20:34:09 Doctor Unassigned, No [facility] DIAGNOSIS AND TREATMENT [facility] GC & CHLAMYDIA 2022-08-14 19:49:00 Neva Elam [facility] AMPLIFIED ASSAY [facility] HIV 1/2 AG-AB WITH 2022-08-14 19:49:00 Neva Elam [facility] REFLEX [facility] HIGH RISK HPV-THIN PREP 2022-08-14 19:49:00 Neva Elam [facility] TRICHOMONAS AMPLIFIED 2022-08-14 19:49:00 [facility] PAP SMEAR-LIQUID 2022-08-14 19:49:00 Neva Elam [facility] BASED-CP Medical [place] GALV ONLY - SYPHILIS 2022-08-14 19:49:00 Neva Elam [facility] IGG/IGM [facility] ASSIGNMENT OF BENEFITS 2022-08-14 18:24:49 Doctor Unassigned, No [facility] Name [facility] ASSIGNMENT OF BENEFITS 2020-07-19 21:10:25 Doctor Unassigned, No [facility] THYROID STIMULATING 2020-07-19 21:05:00 Mattie Cadet [facility] HORMONE [facility] CBC WITH DIFF 2020-07-19 21:05:00 Mattie Cadet [facility] HIV 1/2 AG-AB WITH 2020-07-19 21:05:00 Mattie Cadet [facility] REFLEX [facility] Encounters Start End Encounter Admission Attending Care Care Encounter Source Date/Time Date/Time Type Type Clinicians Facility Department ID 2021-09-06 Emergency [facility] [id number] [facility] 2023-07-08 2023-07-08 Patient Doctor JERRY [id number] Univers 00:00:00 00:00:00 Secure Msg Unassigned, SIM [id number] ity [facility] [id number] [place] [phone] [address] 2023-07-06 2023-07-06 Emergency X [facility] ERT [id number] Univers 15:40:00 17:22:00 [facility] 2023-07-06 2023-07-[address] [address] [id number] Univers 15:40:00 17:22:00 Joy CREWS [id number] ity of [place].2.686 [place] J[place] [phone] [facility] 084 Branch 2022-11-14 2022-11-14 Outpatient R PAPA [facility] [id number] Univers 13:00:00 13:00:00 NEVA ramsay f [facility] 2022-08-30 2022-08-30 Emergency [facility] [id number] [place] 00:00:00 00:00:[address] 2022-08-14 2022-08-14 [facility] [id number] Univers 13:45:00 14:48:53 Visit Neva Escobar CLIENT TECHNICAL PROFESSIONAL [id number] ity of [facility] [id number] [place] as MATERNAL [phone] Med ical & CHILD [address] [place] [address] 2022-08-14 2022-08-14 Outpatient R PAPA [facility] [id number] Univers 13:45:00 14:48:53 NEVA richard [facility] 2022-08-14 2022-08-14 Orders Doctor JERRY [id number] Univers 00:00:00 00:00:00 Only Unassigned, SIM [id number] ity of [place] [facility] [id number] [place] as [phone] [facility] 009 Branch 2021-01-30 2021-01-30 Patient Saeed [facility] [id number] Univers 00:00:00 00:00:00 Outreach Dilan PRIMARY [id number] i ty of [facility] 4[place]2.7.2.686 [place] PAV[place]ION [id number] Sd dical 388 Branch 2020-07-19 2020-07-19 Office Helio [facility] [id number] Univers 15:03:34 16:09:36 Visit Mattie rFance CLIENT TECHNICAL PROFESSIONAL [id number] ity of [facility] [id number] [place] MATERNAL [phone] Med ical & CHILD [address] [place] [address] 2020-07-19 2020-07-19 Outpatient R HELIO, [facility] [id number] Univers 15:15:00 15:15:00 ROSCRYSTAL ity o f [facility] 2020-07-19 2020-07-19 Orders Doctor JERRY [id number] Univers 00:00:00 00:00:00 Only Unassigned, SIM [id number] ity of [place] [facility] [id number] [facility] [phone] [place] [address] Branch 2020-04-15 2020-04-15 Emergency Rober, [facility] [id number] Univers 14:22:28 15:16:00 Elvis Crews [id number] ity of [place] 4.2.7.2.686 [facility] [phone] [place] [address] [place] Results Test Description Test Time Test Comments Results Result Comments Source GALV ONLY - [place]IL[place] IGG/IGM 2022-08-15 13:46:07 Test Item Value Reference Range Interpretation Comme nts Syphilis IgG/IgM (test code = Non-reactive Non-reactive 64268-6) CARLIE (test code = CARLIE) Non-reactive - No serologic evidence of T. pallidum infection. Cannot exclude incubating or early syphilis. Submit a second specimen in 2-4 weeks if syphilis is clinically suspected. Equivocal - Further testing to follow. Reactive - Further testing to follow. Lab Interpretation (test code = Normal 91124-8) [facility] ONLY - [place]ILIS [id number] 13:46:07 Test Item Value Reference Range Interpretation Comments Syphilis IgG/IgM (test Non-reactive Non-reactive code = 11468-6) CARLIE (test code = CARLIE) Non-reactive - No serologic evidence of T. pallidum infection. Cannot exclude incubating or early syphilis. Submit a second specimen in 2-4 weeks if syphilis is clinically suspected. Equivocal - Further testing to follow. Reactive - Further testing to follow. Lab Interpretation (test Normal code = 16995-1) [facility]-AB WITH [id number] 07:03:33 Test Item Value Reference Range Interpretation Comments HIV Negative Negative Semi-quantitative (test code = 79943-2) CARLIE (test code = Non-reactive for HIV-1 CARLIE) antigen and HIV-1/HIV-2 antibodies. ?No laboratory evidence of HIV infection. ?Repeat in 2-4 weeks if acute HIV infection is suspected. [facility] AG-AB WITH [id number] 07:03:33 Test Item Value Reference Range Interpretation Comments HIV Negative Negative Semi-quantitative (test code = 24599-9) CARLIE (test code = Non-reactive for HIV-1 CARLIE) antigen and HIV-1/HIV-2 antibodies. ?No laboratory evidence of HIV infection. ?Repeat in 2-4 weeks if acute HIV infection is suspected. [facility]. PYLORI (BREATH)2022-05-21 15:39:38 Test Item Value Reference Range Interpretation Comments H. PYLORI (BREATH) NEGATIVE NEGATIVE UNLESS O THERWISE (test code = 63059) INDICATE D, ALL TESTING PERFORMED [facility] NICWI PATHOLOGY [facility], [facility]. [address] [place] [address] DIRECTOR: SREEKANTH GARCIA M.D. CLIA NUMBER [id number] CAP ACCREDITATION N O. [id number] HIV 1/2 AG-AB WITH [id number] 05:19:00 Test Item Value Reference Range Interpretation Comments HIV Negative Negative Semi-quantitative (test code = 53463-0) CARLIE (test code = Non-reactive for HIV-1 CARLIE) antigen and HIV-1/HIV-2 antibodies. ?No laboratory evidence of HIV infection. ?Repeat in 2-4 weeks if acute HIV infection is suspected. [facility] AG-AB WITH [id number] 05:19:00 Test Item Value Reference Range Interpretation Comments HIV Negative Negative Semi-quantitative (test code = 56804-3) CARLIE (test code = Non-reactive for HIV-1 CARLIE) antigen and HIV-1/HIV-2 antibodies. ?No laboratory evidence of HIV infection. ?Repeat in 2-4 weeks if acute HIV infection is suspected. [facility]ale[facility]YROID STIMULATING [id number] 03:57:00 Test Item Value Reference Range Interpretation Comments TSH (test code = See_Comment Biotin has been [id number]) reported to cau se a negative bias, interpret resul ts relative to pat ient's use of biotin. [Automated mess age] The system [employer] generated this result transmitted ref erence range: 0.45 - 4 .70 mIU/L. The refe rence range was not u sed to interpret this result as normal/abnor mal. Lab Interpretation (test Normal code = 44359-3) [facility]ID STIMULATING [id number] 03:57:00 Test Item Value Reference Range Interpretation Comments TSH (test code = See_Comment Biotin has been [id number]) reported to cau se a negative bias, interpret resul ts relative to pat cam[place]'s use of biotin. [Automated mess age] The system [employer] generated this result transmitted ref erence range: 0.45 - 4 .70 mIU/L. The refe rence range was not u sed to interpret this result as normal/abnor mal. Lab Interpretation (test Normal code = 18473-3) [facility] WITH [id number] 03:09:00 Test Item Value Reference Range Interpretation Comments WBC (test code = See_Comment [Automated message] 6690-2) The system [employer] generated this result transmitted ref erence range: 4.30 - 1 1.10 10*3/?L. The re ference range was not u sed to interpret this result as normal/abnor mal. RBC (test code = See_Comment [Automated message] 789-8) The system [employer] generated this result transmitted ref erence range: [...] RDW-SD (test code 46.5 fL 39-49.9 = 52966-0) RDW-CV (test code 13.6 % 12-15.5 = 788-0) PLT (test code = See_Comment [Automated message] 777-3) The system whic h generated this result transmitted ref erence range: 166 - 35 8 10*3/?L. The re ference range was not u sed to interpret this result as normal/abnor mal. MPV (test code = 11.2 fL 9.5-12.9 47712-9) NRBC/100 WBC (test See_Comment [Automat ed message] code = 1958025344) The syste m which generated this result transmitted ref erence range: 0.0 - 10 .0 /100 WBCs. The refer ence range was not u sed to interpret this result as normal/abnor mal. NRBC x10^3 (test <0.01 See_Comment [Automated message] code = 0716235911) The syste m which generated this result transmitted ref erence range: 10*3/?L. The reference range was not used to interpr et this result as normal/abnormal . GRAN MAT (NEUT) % 63.9 % (test code = 770-8) IMM GRAN % (test 0.20 % code = 1449805435) LYMPH % (test code 26.0 % = 736-9) MONO % (test code 6.9 % = 5905-5) EOS % (test code = 2.4 % 713-8) BASO % (test code 0.6 % = 706-2) GRAN MAT 5.99 10*3/uL 1.88-7.09 x10^3(ANC) (test code = 1884798576) IMM GRAN x10^3 <0.03 0-0.06 (test code = 6175503253) LYMPH x10^3 (test 2.44 10*3/uL 1.32-3.29 code = 731-0) MONO x10^3 (test 0.65 10*3/uL 0.33-0.92 code = 742-7) EOS x10^3 (test 0.23 10*3/uL 0.03-0.39 code = 711-2) BASO x10^3 (test 0.06 10*3/uL 0.01-0.07 code = 704-7) [facility] WITH [id number] 03:09:00 Test Item Value Reference Range Interpretation Comments WBC (test code = See_Comment [Automated message] 6690-2) The system [employer] generated this result transmitted ref erence range: 4.30 - 1 1.10 10*3/?L. The re ference range was not u sed to interpret this result as normal/abnor mal. RBC (test code = See_Comment [Automated message] 279-8) The system [employer] generated this result transmitted ref erence range: [...] RDW-SD (test code 46.5 fL 39-49.9 = 56609-2) RDW-CV (test code 13.6 % 12-15.5 = 788-0) PLT (test code = See_Comment [Automated message] 777-3) The system [employer] generated this result transmitted ref erence range: 166 - 35 8 10*3/?L. The re ference range was not u sed to interpret this result as normal/abnor mal. MPV (test code = 11.2 fL 9.5-12.9 02342-6) NRBC/100 WBC (test See_Comment [Automat ed message] code = 4228413262) The syste m which generated this result transmitted ref erence range: 0.0 - 10 .0 /100 WBCs. The refer ence range was not u sed to interpret this result as normal/abnor mal. NRBC x10^3 (test <0.01 See_Comment [Automated message] code = 4262714334) The syste m which generated this result transmitted ref erence range: 10*3/?L. The reference range was not used to interpr et this result as normal/abnormal . GRAN MAT (NEUT) % 63.9 % (test code = 770-8) IMM GRAN % (test 0.20 % code = 5551317782) LYMPH % (test code 26.0 % = 736-9) MONO % (test code 6.9 % = 5905-5) EOS % (test code = 2.4 % 713-8) BASO % (test code 0.6 % = 706-2) GRAN MAT 5.99 10*3/uL 1.88-7.09 x10^3(ANC) (test code = 5238213385) IMM GRAN x10^3 <0.03 0-0.06 (test code = 5885963488) LYMPH x10^3 (test 2.44 10*3/uL 1.32-3.29 code = 731-0) MONO x10^3 (test 0.65 10*3/uL 0.33-0.92 code = 742-7) EOS x10^3 (test 0.23 10*3/uL 0.03-0.39 code = 711-2) BASO x10^3 (test 0.06 10*3/uL 0.01-0.07 code = 704-7) [facility]
[2023-09-20 09:24] LABS: Hematocrit 41.6 % (36.0-45.0); MCV 90.4 fL (80-100); MPV 8.7 fL (7.6-11.3); Platelets 258 thou/uL (152-406)
[2023-09-20] MEDS ORDERED: DIAZEPAM 5 MG TABLET ONE (09:26)
[2023-09-20 09:37] LABS: Potassium 3.7 mEq/L (3.5-5.1); Troponin High Sensitivity 56.4 pg/mL (<58.9)
--- NOTE | 2023-09-20 09:56 | RAD REPORT ---
EXAM DESCRIPTION: RADChest Single View09/20/2023 9:40 am CLINICAL HISTORY: CHEST PAIN COMPARISON: Chest Single View dated 07/07/2022; Chest Single View dated 01/11/2022; CHEST PA AND LAT 2 VIEW dated 12/18/2012; CHEST SINGLE VIEW dated 09/27/2012 TECHNIQUE: Portable AP view of the chest. FINDINGS: The lungs are clear. No pneumothorax or effusion. The cardiomediastinal contours are unre markable. IMPRESSION: No acute cardiopulmonary process.
--- NOTE | 2023-09-20 10:07 | ER ---
Nurse's Notes [facility] Name: Cheli Jang Age: 38 yrs Sex: Female : 1985 Arrival Date: 09/20/2023 Time: 08:48 Bed 14 [facility] MD: Diagnosis: Generalized anxiety disorder Presentation: 09/20 09:01 Chief complaint: Intermittent right sided chest pressure, palpitations, and anxiety x hb 2-3 days, home BP 160s/110s, takes propanolol for anxiety but it has not helped. Coronavirus screen: At this time, the client does not indicate any symptoms associated with coronavirus-19. Ebola Screen: No symptoms or risks identified at this time. Initial Sepsis Screen: Does the patient meet any 2 criteria? No. Patient's initial sepsis screen is negative. Does the patient have a suspected source of infection? No. Patient's initial sepsis screen is negative. Risk Assessment: Do you want to hurt yourself or someone else? Patient reports no desire to harm self or others. Onset of symptoms was September 19, 2023. 09:01 Method Of Arrival: Ambulatory hb 09:01 Acuity: EUGENIO 3 hb Historical: - PSHx: 08:53 section; Cholecystectomy; tubal ligation; mb9 - Immunization history:: Adult Immunizations up to date. - Social history:: Smoking status: Patient reports the use of cigarette tobacco products, smokes one-half pack cigarettes per day. Screenin:53 [facility] ED Fall Risk Assessment (Adult) History of falling in the last 3 months, mb9 including since admission No falls in past 3 months (0 pts) Confusion or Disorientation No (0 pts) Intoxicated or Sedated No (0 pts) Impaired Gait No (0 pts) Mobility Assist Device Used No (0 pt) Altered Elimination No (0 pt) Score/Fall Risk Level 0 - 2 = Low Risk Oriented to surroundings, Maintained a safe environment, Educated pt \T\ family on fall prevention, incl call for assistance when getting out of bed. Abuse screen: Denies threats or abuse. Nutritional screening: No deficits noted. Tuberculosis screening: No symptoms or risk factors identified. Assessment: 09:14 General: Appears uncomfortable, Behavior is anxious, crying. Pain: Complains of pain in mb9 chest Pain does not radiate. Pain currently is 0 out of 10 on a pain scale. Quality of pain is described as heavy, pressure, Pain began 2-3 days ago. Is intermittent. Neuro: Oseguera Agitation-Sedation Scale (RASS): 0 - Alert and Calm Level of Consciousness is awake, alert, obeys commands, Oriented to person, place, time, situation, Appropriate for age. Cardiovascular: Reports chest pain, palpitations, Heart tones S1 S2 present Patient's skin is warm and dry. Cardiovascular: JVD is absent Rhythm is regular. Respiratory: Reports shortness of breath cough that is Airway is patent Respiratory effort is even, unlabored, Respiratory pattern is regular, symmetrical, Breath sounds are clear bilaterally. GI: Abdomen is round non-distended, Bowel sounds present X 4 quads. Abd is soft and non tender X 4 quads. Reports nausea. : No signs and/or symptoms were reported regarding the genitourinary system. EENT: No signs and/or symptoms were reported regarding the EENT system. Derm: Skin is pink, warm \T\ dry. Musculoskeletal: Range of motion: intact in all extremities. 10:19 Reassessment: Patient and/or family updated on plan of care and expected duration. Pain mb9 level reassessed. Patient is alert, oriented x 3, equal unlabored respirations, skin warm/dry/pink. Patient states feeling better. Patient states symptoms have improved. Vital Signs: 09:01 BP 153 / 98; Pulse 65; Resp 18; Temp 97.9(TE); Pulse Ox 100% on R/A; Weight 99.79 kg; hb Height 5 ft. 6 in. ; Pain 2/10; 09:15 BP 132 / 86; Pulse 69; Resp 18; Pulse Ox 98% on R/A; mb9 09:37 BP 112 / 88; Pulse 62; Resp 16; Pulse Ox 99% on R/A; mb9 09:01 Body Mass Index 35.51 (99.79 kg, 167.64 cm) hb 09:01 Pain Scale: Adult hb ED Course: 08:52 Patient arrived in ED. im 08:52 Lui Mancia MD is Attending Physician. ec2 08:52 Karla Calderón RN is Primary Nurse. mb9 08:53 Arm band placed on. mb9 08:53 Placed in gown. Bed in low position. Call light in reach. Side rails up X 1. Client mb9 placed on continuous cardiac and pulse oximetry monitoring. NIBP monitoring applied. event attendant on. 09:00 EKG done, by ED staff, reviewed by Lui Mancia MD. mb9 09:04 Triage completed. hb 09:13 Basic Metabolic Panel Sent. mb9 09:13 CBC with Diff Sent. mb9 09:13 Troponin HS Sent. mb9 09:15 No provider procedures requiring assistance completed. Missed attempt(s): 22 gauge in mb9 right upper arm. Bleeding controlled, band aid applied, catheter tip intact. 09:15 Patient maintains SpO2 saturation greater than 95% on room air. mb9 09:42 XRAY Chest (1 view) In Process Unspecified. EDMS 10:19 Patient did not have IV access during this emergency room visit. mb9 Administered Medications: 09:13 Not Given (Physician Discretion): diazepam5 mg IVP once mb9 09:13 Drug: Diazepam PO 5 mg PO once Route: PO; mb9 09:37 Follow up: Response: Anxiety decreased mb9 Medication: 09:15 VIS not applicable for this client. mb9 Outcome: 10:07 Discharge ordered by . ec2 10:19 Discharged to home ambulatory, with family, mb9 10:19 Condition: stable 10:19 Discharge instructions given to patient, family, Instructed on discharge instructions, follow up and referral plans. Demonstrated understanding of instructions, follow-up care, medications, Prescriptions given X 1, 10:20 Patient left the ED. mb9 Signatures: Dispatcher [employer] Shila Pappas RN RN Karla Calderón RN RN mb9 Zainab Artis Edwin, MD MD ec2
--- NOTE | 2023-09-20 10:07 | EDPHYS ---
Physician Documentation [facility] Name: Cheli Jang Age: 38 yrs Sex: Female : 1985 Arrival Date: 09/20/2023 Time: 08:48 Bed 14 Private MD: ED Physician Lui Mancia HPI: 09/20 09:06 This 38 yrs old Female presents to ER via Ambulatory with complaints of Chest ec2 Tightness, Anxiety, High Blood Pressure, Nausea. 09:06 Patient arrives today due to concern for anxiety. States that she has a history of ec2 anxiety and is on propranolol chronically, states that she has been experiencing palpitations as well as chest tightness as well as tearfulness. States that she was concerned because her blood pressure has been elevated. Patient reports no exertional component to this. Patient denies any medications aside from propranolol. . Historical: - PSHx: 08:53 section; Cholecystectomy; tubal ligation; mb9 - Immunization history:: Adult Immunizations up to date. - Social history:: Smoking status: Patient reports the use of cigarette tobacco products, smokes one-half pack cigarettes per day. ROS: 09:06 Constitutional: as per hpi ec2 Exam: 09:06 Constitutional: GEN: NAD Head: atraumatic Eyes: EOMI Ears: External ears are ec2 normal. CV: regular rate LUNGS: no respiratory distress, no wheezes, no rales, rhonchi ABD: non-distended SKIN: no evidence of rashes MSK: no evidence of trauma NEURO: moves all extremities equally psych: Tearful, cooperative Vital Signs: 09:01 BP 153 / 98; Pulse 65; Resp 18; Temp 97.9(TE); Pulse Ox 100% on R/A; Weight 99.79 kg; hb Height 5 ft. 6 in. ; Pain 2/10; 09:15 BP 132 / 86; Pulse 69; Resp 18; Pulse Ox 98% on R/A; mb9 09:37 BP 112 / 88; Pulse 62; Resp 16; Pulse Ox 99% on R/A; mb9 09:01 Body Mass Index 35.51 (99.79 kg, 167.64 cm) hb 09:01 Pain Scale: Adult hb MDM: 08:53 Patient medically screened. ec2 09:06 Data reviewed: vital signs. ED course: Patient arrives today due to concern for ec2 anxiety. Examination remarkable for tearful individual is otherwise in no acute distress with reassuring cardiovascular examination and reassuring lung sounds. Will obtain a cardiac work-up, give the patient IV Valium and reassess the patient. Currently considering ACS, anxiety, low suspicion for PE or dissection. EKG obtained, independently reviewed and interpreted by me, shows normal sinus rhythm, rate of 59, no acute ST segment elevations, nonconcerning intervals.. 09:39 ED course: CBC is reassuring, metabolic profile with appropriate electrolytes and renal ec2 function, troponin within normal ranges. Patient has been having symptoms for several days, I do not feel that this requires repeating at this time given the duration of symptoms.. 09:59 ED course: Chest x-ray independently reviewed and interpreted by me, shows no acute ec2 intrathoracic process.. 10:06 ED course: On reassessment patient with resolution of her symptoms. Will discharge home ec2 with prescription for Atarax. Has an appointment in 2 days to follow-up with her primary care doctor. Return precautions given. . 09/20 08:55 Order name: Basic Metabolic Panel; Complete Time: 09:39 ec2 09/20 08:55 Order name: CBC with Diff; Complete Time: 09:31 ec2 09/20 08:55 Order name: Troponin HS; Complete Time: 09:39 ec2 09/20 08:55 Order name: XRAY Chest (1 view); Complete Time: 09:59 ec2 09/20 08:55 Order name: EKG; Complete Time: 08:55 ec2 09/20 08:55 Order name: Cardiac monitoring; Complete Time: 09:09 ec2 09/20 08:55 Order name: EKG - Nurse/Tech; Complete Time: 09:09 ec2 09/20 08:55 Order name: IV Saline Lock; Complete Time: 09:09 ec2 09/20 08:55 Order name: Labs collected and sent; Complete Time: 09:09 ec2 09/20 08:55 Order name: O2 Per Protocol; Complete Time: 09:09 ec2 09/20 08:55 Order name: O2 Sat Monitoring; Complete Time: 09:09 ec2 Administered Medications: 09:13 Not Given (Physician Discretion): diazepam5 mg IVP once mb9 09:13 Drug: Diazepam PO 5 mg PO once Route: PO; mb9 09:37 Follow up: Response: Anxiety decreased mb9 Disposition Summary: 09/20/23 10:07 Discharge Ordered Notes: Location: Home ec2 Condition: Stable ec2 Diagnosis - Generalized anxiety disorder ec2 Discharge Instructions: - Discharge Summary Sheet ec2 - Managing Anxiety, Adult ec2 Forms: - Medication Reconciliation Form ec2 - Thank You Letter ec2 - Antibiotic Education ec2 - Prescription Opioid Use ec2 - Patient Portal Instructions ec2 - Leadership Thank You Letter ec2 Prescriptions: - Hydroxyzine HCl 50 mg Oral Tablet - take 1 tablet ORAL route every 8 hours As needed; 20 tablet; Refills: 0, ec2 Product Selection Permitted Signatures: Dispatcher [employer] EDShila Barrow RN RN Karla Calderón RN RN mb9 Lui Mancia MD MD ec2 Corrections: (The following items were deleted from the chart) 09:07 09:06 Constitutional: GEN: NAD Head: atraumatic Eyes: EOMI Ears: External ears are ec2 normal. CV: regular rate LUNGS: no respiratory distress ABD: non-distended SKIN: no evidence of rashes MSK: no evidence of trauma NEURO: moves all extremities equally psych: Tearful, cooperative ec2
[2023-09-20 10:25] VITALS: TEMP 97.9
[2023-09-20 10:28] VITALS: BP 112/88; O2SAT 99
--- NOTE | 2023-09-24 17:37 | EKG ---
Test Date: 2023-09-20 Test Time: 09:59:44 Supervisor Benzene Refining: MB MEASUREMENT RESULTS: Intervals: Rate: 59 KS: 172 QRSD: 90 QT: 418 QTc: 413 Carey: P: 64 KS: 172 QRS: 64 T: 53 INTERPRETIVE STATEMENTS: Sinus bradycardia Otherwise normal ECG Compared to ECG 07/07/2022 23:11:16 Sinus rhythm no longer present Electronically Signed On 09-24-23 17:26:22 ACTIVITIES COORDINATOR by Osorio Orr
== END 2023-09-20 10:20 | disposition home or self-care (01) ==
LOC: ER 08:48
DX: F41.1 Generalized anxiety disorder (principal); F17.210 Nicotine dependence, cigarettes, uncomplicated
CPT/HCPCS: 36415; 71045; 80048; 84484; 85025; 93005; 99285

== ENCOUNTER 2024-06-29 18:20 | Emergency (ER) | payer OTHER ==
--- NOTE | 2024-06-29 18:48 | EDPHYS ---
Physician Documentation [facility] Name: Cheli Jang Age: 39 yrs Sex: Female : 1985 Arrival Date: 06/29/2024 Time: 18:20 Bed IW8 Private MD: ED Physician Lui Mancia HPI: 06/29 19:02 This 39 yrs old Female presents to ER via Ambulatory with complaints of Urinary Problem.sb4 19:02 The patient presents with urinary symptoms, dysuria. Onset: The symptoms/episode sb4 began/occurred yesterday. Modifying factors: The symptoms are alleviated by nothing, the symptoms are aggravated by nothing. Associated signs and symptoms: The patient has no apparent associated signs or symptoms. The patient has experienced similar episodes in the past, a few times, today's symptoms are similar. The patient has not recently seen a physician. 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 - Infectious Disease History:: Denies. - Social history:: Smoking status: Patient denies any tobacco usage or history of. ROS: 19:02 Positive for urinary symptoms, burning with urination, sb4 19:02 Constitutional: Negative for fever, chills, and weight loss, Exam: 19:02 Constitutional: This is a well developed, well nourished patient who is awake, alert, sb4 and in no acute distress. Head/Face: Normocephalic, atraumatic. Eyes: Extra-ocular motions intact. Periorbital areas with no swelling, redness, or edema. ENT: Mucous membranes moist. Skin: Warm, dry with normal turgor. Normal color with no rashes, no lesions, and no evidence of cellulitis. MS/ Extremity: Pulses equal, no cyanosis. Neurovascular intact. Full, normal range of motion. Vital Signs: 18:39 BP 146 / 87; Pulse 90; Resp 16; Temp 99; Pulse Ox 97% ; Weight 93.89 kg; Height 5 ft. 6 db in. ; Pain 8/10; 18:39 Body Mass Index 33.41 (93.89 kg, 167.64 cm) db 18:39 Pain Scale: Adult db MDM: 18:37 Patient medically screened. sb4 19:03 Data reviewed: vital signs, nurses notes, lab test result(s), and as a result, I will sb4 discharge patient. Counseling: I had a detailed discussion with the patient and/or guardian regarding the historical points, exam findings, and any diagnostic results supporting the discharge/admit diagnosis, lab results, to return to the emergency department if symptoms worsen or persist or if there are any questions or concerns that arise at home. 06/29 18:44 Order name: UAM sb4 06/29 18:44 Order name: Test, Urine sb4 Administered Medications: No medications were administered Disposition Summary: 06/29/24 18:47 Discharge Ordered Notes: Location: Home sb4 Problem: new sb4 Symptoms: are unchanged sb4 Condition: Stable sb4 Diagnosis - UTI/ Urinary tract infection, site not specified sb4 Followup: sb4 - With: Emergency Department - When: As needed - Reason: Fever > 102 F, Worsening of condition Discharge Instructions: - Discharge Summary Sheet sb4 - Urinary Tract Infection, Adult, [id number] sb4 Forms: - Antibiotic Education sb4 - Patient Portal Instructions sb4 - Leadership Thank You Letter sb4 Prescriptions: - Bactrim DS 800-160 mg Oral Tablet - take 1 tablet ORAL route every 12 hours for 10 days; 20 tablet; Refills: 0, sb4 Product Selection Permitted Signatures: Dispatcher [employer] Philomena Abdi, RN RN Mariela Marquez, PAJean Paul PAJean Paul sb4 Corrections: (The following items were deleted from the chart) 18:45 18:45 Urinalysis W/Microscopic+U.LAB.BRZ ordered. EDMS EDMS 18:45 18:45 Test, Urine+UC.LAB.BRZ ordered. EDMS EDMS
--- NOTE | 2024-06-29 18:48 | ER ---
Nurse's Notes [facility] Name: Cheli Jang Age: 39 yrs Sex: Female : 1985 Arrival Date: 06/29/2024 Time: 18:20 Bed IW8 Private MD: Diagnosis: UTI/ Urinary tract infection, site not specified Presentation: 06/29 18:39 Chief complaint: Patient states: BURNING WITH URINATION STARTED THIS AM. HAS INCREASED db MIDDLE LOWER BACK PAIN. DENIES NAUSEA. TOOK OTC AZO FOR SYMPTOMS. Coronavirus screen: Client denies travel out of the [place] in the last 14 days. At this time, the client does not indicate any symptoms associated with coronavirus-19. Ebola Screen: Patient negative for fever greater than or equal to 101.5 degrees Fahrenheit, and additional compatible Ebola Virus Disease symptoms Patient denies exposure to infectious person. Patient denies travel to an Ebola-affected area in the 21 days before illness onset. No symptoms or risks identified at this time. Initial Sepsis Screen: Does the patient meet any 2 criteria? No. Patient's initial sepsis screen is negative. Does the patient have a suspected source of infection? No. Patient's initial sepsis screen is negative. Risk Assessment: Do you want to hurt yourself or someone else? Patient reports no desire to harm self or others. Onset of symptoms was June 29, 2024. 18:39 Method Of Arrival: Ambulatory db 18:39 Acuity: EUGENIO 4 db Triage Assessment: 18:44 General: Appears in no apparent distress. comfortable, Behavior is calm, cooperative. db Pain: Complains of pain in pelvis. Neuro: Level of Consciousness is awake, alert, obeys commands, Oriented to person, place, time. : Reports burning with urination. 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 - Infectious Disease History:: Denies. - Social history:: Smoking status: Patient denies any tobacco usage or history of. Screenin:59 [facility] ED Fall Risk Assessment (Adult) History of falling in the last 3 months, db including since admission No falls in past 3 months (0 pts) Confusion or Disorientation No (0 pts) Intoxicated or Sedated No (0 pts) Impaired Gait No (0 pts) Mobility Assist Device Used No (0 pt) Altered Elimination No (0 pt) Score/Fall Risk Level 0 - 2 = Low Risk Oriented to surroundings, Maintained a safe environment. Abuse screen: Denies threats or abuse. Denies injuries from another. Nutritional screening: No deficits noted. Tuberculosis screening: No symptoms or risk factors identified. Assessment: 18:59 Reassessment: Patient appears in no apparent distress at this time. Patient and/or db family updated on plan of care and expected duration. Pain level reassessed. Patient is alert, oriented x 3, equal unlabored respirations, skin warm/dry/pink. Vital Signs: 18:39 BP 146 / 87; Pulse 90; Resp 16; Temp 99; Pulse Ox 97% ; Weight 93.89 kg; Height 5 ft. 6 db in. ; Pain 8/10; 18:39 Body Mass Index 33.41 (93.89 kg, 167.64 cm) db 18:39 Pain Scale: Adult db ED Course: 18:28 Patient arrived in ED. mg5 18:29 Mariela De Leon PA-C is PHCP. sb4 18:29 Lui Mancia MD is Attending Physician. sb4 18:44 Triage completed. db 18:44 Arm band placed on Patient placed in waiting room. db 18:48 Urine collected: clean catch specimen. db 18:59 Patient has correct armband on for positive identification. Provided Education on: db DISCHARGE, ANTIBIOTICS AND FOLLOWUP. 18:59 No provider procedures requiring assistance completed. Patient did not have IV access db during this emergency room visit. Administered Medications: No medications were administered Medication: 18:59 VIS not applicable for this client. db Outcome: 18:47 Discharge ordered by . sb4 18:59 Discharged to home ambulatory, db 18:59 Condition: stable 18:59 Discharge instructions given to patient, Instructed on discharge instructions, follow up and referral plans. Prescriptions given X 1, 19:00 Patient left the ED. db Signatures: Philomena Meyers, RN RN Mariela Marquez PA-C PA-C sb4 Maria Antonia Wiggins mg5
[2024-06-29 19:14] LABS: Specific Gravity 1.019 (1.005-1.030)
[2024-06-29 19:19] LABS: Specific Gravity 1.019 (1.005-1.030); Sqamous Epithelial <5 /HPF (None Seen); Urine Bacteria <20 /HPF (<20); Urine Bilirubin NEGATIVE (Negative); Urine Blood 2+ (Negative); Urine Clarity Extremely Turbid (Clear); Urine Color Dark-Yellow (Yellow); Urine Culture Reflex Order REFLEXED; Urine Glucose NEGATIVE (Negative); Urine Ketones NEGATIVE (Negative); Urine Micro Reflex YN NO BILL MICROSCOPIC; Urine Mucus Slight /HPF (None Seen); Urine Nitrite NEGATIVE (Negative); Urine Protein 1+ (Negative); Urine RBC >50 /HPF (None Seen); Urine Urobilinogen 1+ (Normal); Urine WBC >50 /HPF (<5); Urine pH 7.5 (5.0-7.0)
[2024-06-29 19:29] VITALS: BP 146/87; TEMP 99; O2SAT 97
== END 2024-06-29 19:00 | disposition home or self-care (01) ==
LOC: ER 18:20
DX: N39.0 Urinary tract infection, site not specified (principal)
CPT/HCPCS: 81001; 81025; 87086; 87088

== ENCOUNTER 2024-11-13 11:11 | Emergency (ER) | payer OTHER, SELFPAY ==
[2024-11-13 12:06] LABS: SARS-CoV-2 Antigen CONTROL BLUE LINE VIS/BG OK; SARS-CoV-2 Antigen Rapid Res Negative (Negative)
--- NOTE | 2024-11-13 13:06 | RAD REPORT ---
EXAMINATION: TWO VIEW CHEST XR CLINICAL INDICATION: Congestion;Cough TECHNIQUE: 2 views of the chest was performed. COMPARISON: 09/20/2023 FINDINGS: The lungs are well inflated and clear. The heart is normal in size. No displaced fractures evident. IMPRESSION: No acute or significant abnormalities.
--- NOTE | 2024-11-13 13:18 | EDPHYS ---
Physician Documentation [facility] Name: Cheli Jang Age: 39 yrs Sex: Female : 1985 Arrival Date: 11/13/2024 Time: 11:11 Bed 12 Private MD: ED Physician Lui Mancia HPI: 11/13 11:32 This 39 yrs old Female presents to ER via Ambulatory with complaints of Sore dr5 Throat. 11:32 The patient presents with sore throat. Onset: The symptoms/episode began/occurred dr5 acutely. Associated signs and symptoms: Pertinent positives: chills, cough, flu-like symptoms, myalgias. Patient is a 39-year-old female with history of hypertension, GERD coming in with sore throat and congestion that started this morning when she woke up with myalgias and non-productive cough.. 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 - Infectious Disease History:: Denies. - Social history:: Smoking status: . ROS: 11:32 Constitutional: as per hpi dr5 Exam: 11:32 Constitutional: This is a well developed, well nourished patient who is awake, alert, dr5 and in no acute distress. Head/Face: Normocephalic, atraumatic. Eyes: Pupils equal round and reactive to light, extra-ocular motions intact. Lids and lashes normal. Conjunctiva and sclera are non-icteric and not injected. Cornea within normal limits. Periorbital areas with no swelling, redness, or edema. Neck: Trachea midline, no thyromegaly or masses palpated, and no cervical lymphadenopathy. Supple, full range of motion without nuchal rigidity, or vertebral point tenderness. No Meningismus. Chest/axilla: Normal chest wall appearance and motion. Nontender with no deformity. No lesions are appreciated. Cardiovascular: Regular rate and rhythm with a normal S1 and S2. Normal PMI, no JVD. No pulse deficits. Respiratory: Lungs have equal breath sounds bilaterally, clear to auscultation. No rales, rhonchi or wheezes noted. No increased work of breathing, no retractions or nasal flaring. Back: No spinal tenderness. No costovertebral tenderness. Full range of motion. Skin: Warm, dry with normal turgor. Normal color with no rashes, no lesions, and no evidence of cellulitis. Neuro: Awake and alert, GCS 15, oriented to person, place, time, and situation. Cranial nerves II-XII grossly intact. Motor strength 5/5 in all extremities. Sensory grossly intact. Cerebellar exam normal. Normal gait. Vital Signs: 11:20 BP 129 / 87; Pulse 78; Resp 16; Temp 97; Pulse Ox 100% ; Weight 93.89 kg; Height 5 ft. iw 6 in. ; Pain 7/10; 11:20 Body Mass Index 33.41 (93.89 kg, 167.64 cm) iw 11:20 Pain Scale: Adult iw MDM: 11:22 Medical Screening Exam initiated dr5 16:41 Differential diagnosis: Allergic rhinitis, influenza, pharyngitis. Data reviewed: vital dr5 signs, nurses notes. I considered the following discharge prescriptions or medication management in the emergency department Medications were administered in the Emergency Department. See MAR. Care significantly affected by the following chronic conditions: Hypertension, GERD. Care significantly affected by the following Social Determinants of Health: Poor access to healthcare and/or lack of insurance, Poor access to transportation, Problems related to employment. Counseling: I had a detailed discussion with the patient and/or guardian regarding the historical points, exam findings, and any diagnostic results supporting the discharge/admit diagnosis, the need for outpatient follow up, for definitive care, a family practitioner, to return to the emergency department if symptoms worsen or persist or if there are any questions or concerns that arise at home. ED course: Patient likely has acute pharyngitis. Will give steroid Dosepak for inflammation. Recommend alternating Tylenol and Motrin as needed for pain and fever. All questions answered. Return to ER if worsening conditions.. 11/13 11:25 Order name: SARS RAPID; Complete Time: 12:13 dr5 11/13 11:25 Order name: Influenza Screen (a \T\ B); Complete Time: 12:13 dr5 11/13 11:25 Order name: Strep dr5 11/13 12:09 Order name: Throat Culture EDHI 11/13 11:25 Order name: Chest Pa And Lat (2 Views) XRAY; Complete Time: 13:08 dr5 Administered Medications: 13:27 Drug: Dexamethasone IM 10 mg IM once Route: IM; Site: left gluteus; iw 14:00 Follow up: Response: No adverse reaction iw Disposition Summary: 11/13/24 13:17 Discharge Ordered Notes: Location: Home dr5 Condition: Stable dr5 Diagnosis - Acute upper respiratory infection, unspecified dr5 Followup: dr5 - With: Emergency Department - When: As needed - Reason: Worsening of condition Followup: dr5 - With: Private Physician - When: 1 - 2 days - Reason: Recheck today's complaints, Continuance of care, Re-evaluation by your physician Discharge Instructions: - Discharge Summary Sheet dr5 - Upper Respiratory Infection, Adult dr5 Forms: - Work release form dr5 - Medication Reconciliation Form dr5 - Patient Portal Instructions dr5 - Leadership Thank You Letter dr5 Prescriptions: - Bromfed DM 2-30-10 mg/5 mL Oral syrup - administer 10 milliliter ORAL route every 6 hours As needed as needed for sinus dr5 symptoms; 240 milliliter; Refills: 0, Product Selection Permitted - Medrol (Alexis) 4 mg Oral Tablets, Dose Pack - take 1 tablet ORAL route as directed - follow package instructions; 1 packet; dr5 Refills: 0, Product Selection Permitted Addendum: 11/15/2024 07:40 I was immediately available for consultation during this patient's visit. I did not e c2 personally see the patient or discuss the patient with the CHERI. . Signatures: Dispatcher [employer] Deisy Snyder RN RN iw Lui Mancia MD MD ec2 Eric Crisostomo, KITCHEN ASSISTANT-C KITCHEN ASSISTANT-Cdr5 Corrections: (The following items were deleted from the chart) 11/13 11:27 11:27 Chest Pa And Lat (2 Views)+RAD.RAD.BRZ ordered. GILBERT HUNT
--- NOTE | 2024-11-13 13:18 | ER ---
Nurse's Notes [facility] Name: Cheli Jang Age: 39 yrs Sex: Female : 1985 Arrival Date: 11/13/2024 Time: 11:11 Bed 12 Private MD: Diagnosis: Acute upper respiratory infection, unspecified Presentation: 11/13 11:19 Chief complaint: Patient states: sore throat since this morning, feels like i am iw swallowing razor blades. Coronavirus screen: At this time, the client does not indicate any symptoms associated with coronavirus-19. Ebola Screen: No symptoms or risks identified at this time. Initial Sepsis Screen: Does the patient meet any 2 criteria? No. Patient's initial sepsis screen is negative. Does the patient have a suspected source of infection? No. Patient's initial sepsis screen is negative. Risk Assessment: Do you want to hurt yourself or someone else? Patient reports no desire to harm self or others. Onset of symptoms was November 13, 2024. 11:19 Method Of Arrival: Ambulatory iw 11:19 Acuity: EUGENIO 4 iw Triage Assessment: 12:30 General: Appears in no apparent distress. comfortable, Behavior is calm, cooperative. 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 - Infectious Disease History:: Denies. - Social history:: Smoking status: . Screenin:30 [facility] ED Fall Risk Assessment (Adult) History of falling in the last 3 months, iw including since admission No falls in past 3 months (0 pts) Confusion or Disorientation No (0 pts) Intoxicated or Sedated No (0 pts) Impaired Gait No (0 pts) Mobility Assist Device Used No (0 pt) Altered Elimination No (0 pt) Score/Fall Risk Level 0 - 2 = Low Risk Oriented to surroundings, Maintained a safe environment. Abuse screen: Denies threats or abuse. Denies injuries from another. Nutritional screening: No deficits noted. Tuberculosis screening: No symptoms or risk factors identified. Assessment: 12:30 General: Appears in no apparent distress. Behavior is calm, cooperative. Pain: iw Complains of pain in throat. Neuro: Level of Consciousness is awake, alert, obeys commands, Oriented to person, place, time, situation, Moves all extremities. Full function. Cardiovascular: Patient's skin is warm and dry. Respiratory: Airway is patent Respiratory effort is even, unlabored, EENT: Throat is clear Reports pain in throat. Derm: Skin is intact, is healthy with good turgor. Musculoskeletal: Range of motion: intact in all extremities. Vital Signs: 11:20 BP 129 / 87; Pulse 78; Resp 16; Temp 97; Pulse Ox 100% ; Weight 93.89 kg; Height 5 ft. iw 6 in. ; Pain 7/10; 11:20 Body Mass Index 33.41 (93.89 kg, 167.64 cm) iw 11:20 Pain Scale: Adult iw ED Course: 11:13 Patient arrived in ED. ra3 11:15 [facility] Crisost[facility]C [facility]. dr5 11:15 Lui Mancia MD is Attending Physician. dr5 11:19 Triage completed. iw 12:30 Arm band placed on. iw 12:30 Patient has correct armband on for positive identification. Provided Education on: . iw 12:33 Deisy Cabrales, RN is Primary Nurse. iw 12:58 Chest Pa And Lat (2 Views) XRAY In Process Unspecified. EDMS 13:30 No provider procedures requiring assistance completed. Patient did not have IV access iw during this emergency room visit. Administered Medications: 13:27 Drug: Dexamethasone IM 10 mg IM once Route: IM; Site: left gluteus; iw 14:00 Follow up: Response: No adverse reaction iw Medication: 13:29 VIS not applicable for this client. iw Outcome: 13:17 Discharge ordered by MD. dr5 13:30 Condition: good iw 13:30 Discharge instructions given to patient, Instructed on discharge instructions, follow up and referral plans. medication usage, Demonstrated understanding of instructions, follow-up care, medications, Prescriptions given X 2, 13:30 Discharged to home ambulatory, iw 13:31 Patient left the ED. iw Signatures: Dispatcher [employer] EDMS Deisy Cabrales, SADE STUART iw Ashley Graham ra3 Eric Crisostomo FNP-C ORDERING MACHINE OPERATOR-Cdr5
[2024-11-13] MEDS ORDERED: dexAMETHasone 10 MG/ML VIAL ONE (13:19)
[2024-11-13 13:35] VITALS: BP 129/87; TEMP 97; O2SAT 100
== END 2024-11-13 13:31 | disposition home or self-care (01) ==
LOC: ER 11:11
DX: J06.9 Acute upper respiratory infection, unspecified (principal); I10 Essential (primary) hypertension; Z11.52 Encounter for screening for COVID-19
CPT/HCPCS: 87070; 36415; 87081; 87804 ×2; 71046; 96372; 99284; 87811; J1100

== ENCOUNTER 2025-02-18 15:58 | Emergency (ER) | payer OTHER ==
--- NOTE | 2025-02-18 16:46 | RAD REPORT ---
EXAMINATION: ONE VIEW CHEST XR CLINICAL INDICATION: CHEST PAIN TECHNIQUE: Frontal chest projection is submitted. Examination is limited by patient positioning and t echnique. COMPARISON: 11/13/2024 FINDINGS: The lungs are well inflated and clear. The heart is normal in size. No displaced fractures identified . IMPRESSION: No acute intrathoracic abnormalities.
[2025-02-18] MEDS ORDERED: MAGNES/ALUMIN/SIMET 30ML UCUP ONE (17:23)
[2025-02-18] MEDS ORDERED: LIDOCAINE VISCOUS 2% 10ML ORAL SOLN ONE (17:24)
[2025-02-18] MEDS ORDERED: FAMOTIDINE 20 MG/2 ML VIAL IV ONE (17:24)
[2025-02-18] MEDS ORDERED: ASPIRIN 81 MG CHEWABLE TABLET ONE (17:24)
[2025-02-18 17:51] LABS: Absolute Basophils 0.1 K/uL (0-0.5); Absolute Eosinophils 0.2 K/uL (0-0.5); Absolute Lymphocytes (CBC) 2.4 K/uL (0.7-4.9); Absolute Monocytes 0.6 K/uL (0.1-1.3); Basophils % 0.7 % (0-1.3); Hemoglobin 13.5 g/dL (12.0-15.0); Lymphocytes % 26.4 % (15.3-44.8); MCH 31.2 pg (27.0-35.0); MCHC 34.7 g/dL (32.0-36.0); MPV 8.6 fL (7.6-11.3); Monocytes % 6.1 % (3.3-12.3); Neutrophils % 64.8 % (41.7-73.7); Platelets 269 thou/uL (152-406); RBC Red Blood Cell Count 4.33 M/uL (3.86-4.86); Red Cell Distribution Width 14.4 % (12.1-15.2)
[2025-02-18 18:09] LABS: ALT/SGPT 68 U/L (13-56); AST/SGOT 30 U/L (15-37); Albumin 3.6 g/dL (3.4-5.0); Albumin/Globulin Ratio 0.9 (1.1-1.8); Alkaline Phosphatase 96 U/L (45-117); Anion Gap 5.8 mEq/L (5.0-15.0); BUN Blood Urea Nitrogen 8 mg/dL (7-18); Bicarbonate 28 mEq/L (21-32); Bilirubin Total 0.2 mg/dL (0.2-1.0); Globulin 4.2 g/dL (2.3-3.5); Glomerular Filtration Rate 92 ml/min (=/>90); Glucose Level 86 mg/dL (74-106); NT PRO-BNP 21 pg/mL (<125); Potassium 3.8 mEq/L (3.5-5.1); Protein, Total 7.8 g/dL (6.4-8.2); Sodium Level 137 mEq/L (136-145); Troponin High Sensitivity 29.1 pg/mL (<58.9)
[2025-02-18 18:13] LABS: Bilirubin Direct < 0.2 mg/dL (0-0.2)
--- NOTE | 2025-02-18 20:58 | ER ---
Nurse's Notes [facility] Name: Cheli Jang Age: 39 yrs Sex: Female : 1985 Arrival Date: 02/18/2025 Time: 15:58 Bed 8 Private MD: Diagnosis: Presentation: 02/18 16:13 Chief complaint: Patient states: chest pain radiating to back that began 2 hours ago, aa5 pt states "I thought it was heart burn but I took Zantac and Pepcid and they are not helping". Pt reports she ate a banana for breakfast and Frito pie for lunch. 16:13 Coronavirus screen: At this time, the client does not indicate any symptoms associated aa5 with coronavirus-19. Ebola Screen: Patient denies travel to an Ebola-affected area in the 21 days before illness onset. Initial Sepsis Screen: Does the patient meet any 2 criteria? No. Patient's initial sepsis screen is negative. Does the patient have a suspected source of infection? No. Patient's initial sepsis screen is negative. Risk Assessment: Do you want to hurt yourself or someone else? Patient reports no desire to harm self or others. Onset of symptoms was February 18, 2025. 16:13 Method Of Arrival: Ambulatory aa5 16:13 Acuity: EUGENIO 3 aa5 Historical: - Allergies: 16:13 No Known Allergies; aa5 - Home Meds: 16:13 Protonix Oral [Active]; Lisinopril Oral [Active]; Lexapro Oral [Active]; aa5 - PMHx: 16:13 GERD; Hypertensive disorder; Anxiety; aa5 - PSHx: 16:13 section; Cholecystectomy; tubal ligation; aa5 - Immunization history:: Adult Immunizations unknown. - Infectious Disease History:: Denies. - Social history:: Smoking status: Patient reports the use of cigarette tobacco products, 1 cigarette a day . Screenin:42 Abuse screen: Denies threats or abuse. Nutritional screening: No deficits noted. ap3 Tuberculosis screening: No symptoms or risk factors identified. Assessment: 17:42 General: Appears in no apparent distress. Behavior is calm, cooperative, appropriate ap3 for age. Pain: Complains of pain in chest Pain does not radiate. Pain currently is 0 out of 10 on a pain scale. Pain: Denies pain. Neuro: Level of Consciousness is awake, alert, obeys commands, Oriented to person, place, time, situation, Appropriate for age Speech is normal. Cardiovascular: Patient's skin is warm and dry. 17:43 Pain: Pain began earlier. ap3 Vital Signs: 16:13 BP 137 / 74; Pulse 82; Resp 16 S; Temp 97.5(TE); Pulse Ox 98% on R/A; Weight 99.34 kg aa5 (R); Height 5 ft. 6 in. (R); 17:56 BP 127 / 82; Pulse 75; Resp 17; Pulse Ox 99% on R/A; ap3 18:43 BP 139 / 72; Pulse 61; Resp 17; Pulse Ox 100% on R/A; ap3 16:13 Body Mass Index 35.35 (99.34 kg, 167.64 cm) aa5 ED Course: 16:00 Patient arrived in ED. cj3 16:03 Jesus Sharpe MD is Attending Physician. jr11 16:13 Arm band placed on. aa5 16:27 Triage completed. aa5 16:45 XRAY Chest (1 view) In Process Unspecified. EDMS 16:58 Мария Jensen, RN is Primary Nurse. ap3 17:09 EKG done, by ED staff, reviewed by Jesus Sharpe MD. em1 17:41 Initial lab(s) drawn, by me, sent to lab. Inserted saline lock: 22 gauge in left ap3 antecubital area, using aseptic technique. Blood collected. Flushed with 10 mL NS. Patient maintains SpO2 saturation greater than 95% on room air. 17:43 Patient has correct armband on for positive identification. Bed in low position. Call ap3 light in reach. Side rails up X2. Adult w/ patient. Client placed on continuous cardiac and pulse oximetry monitoring. NIBP monitoring applied. radiation monitor on. Pulse ox on. NIBP on. Administered Medications: 17:39 Drug: Aspirin PO Chewable Tablet 324 mg PO once; 81 mg tablets x 4 Route: PO; ld1 17:39 Drug: GI Cocktail without - (Maalox PO 30 ml, Lidocaine Mucous Membrane 2 % 15 ld1 ml) PO once Route: PO; 17:41 Drug: Famotidine IVP 20 mg IVP once; dilute with 10 mL 0.9% NaCl; give over 2 minutes ap3 Route: IVP; Site: right antecubital; Outcome: 20:45 Eloped from patient exam room, after seeing physician Time discovered patient gone: vc1 February 18, 2025 at 20:45 20:45 Condition: stable 20:45 Instructed on left before discharge 20:58 Patient left the ED. vc1 Signatures: Dispatcher [employer] EDPepe Bland em1 Lis Luevano RN RN aa5 Мария Jensen RN RN ap3 Bridgett Kevin RN RN ld1 Franchesca Burgos RN RN vc1 Jesus Sharpe MD MD jr11 Debora Pickett cj3
--- NOTE | 2025-02-18 20:58 | EDPHYS ---
Physician Documentation [facility] Name: Cheli Jang Age: 39 yrs Sex: Female : 1985 Arrival Date: 02/18/2025 Time: 15:58 Bed 8 Private MD: ED Physician Jesus Sharpe HPI: 02/18 16:13 Chief Complaint Chest pain radiating to the back. History of Present Illness The jr11 patient presents with chest pain rated as a 7 out of 10 on the pain scale, which radiates to the back. The patient reports experiencing similar pain before, which was initially thought to be heartburn. Previous attempts to alleviate the pain with Zantac and Pepto-Bismol were ineffective. The pain intensified significantly. The patient has been taking Protonix daily for the past three years. There is no shortness of breath currently, but the patient experiences it when the pain intensifies. There is no abdominal pain or pain during urination. The patient reports not having fever or chills. Review of Systems - Chest pain radiating to the back - Occasional shortness of breath when pain intensifies - No abdominal pain - No pain on urination - No fever or chills - ROS otherwise negative . Historical: - Allergies: 16:13 No Known Allergies; aa5 - Home Meds: 16:13 Protonix Oral [Active]; Lisinopril Oral [Active]; Lexapro Oral [Active]; aa5 - PMHx: 16:13 GERD; Hypertensive disorder; Anxiety; aa5 - PSHx: 16:13 section; Cholecystectomy; tubal ligation; aa5 - Immunization history:: Adult Immunizations unknown. - Infectious Disease History:: Denies. - Social history:: Smoking status: Patient reports the use of cigarette tobacco products, 1 cigarette a day . Exam: 16:13 Constitutional: This is a well developed, well nourished patient who is awake, alert, jr11 and in no acute distress. Head/Face: Normocephalic, atraumatic. Eyes: Extra-ocular motions intact. Lids and lashes normal. Conjunctiva and sclera are non-icteric and not injected. Cornea within normal limits. Periorbital areas with no swelling, redness, or edema. Neck: Trachea midline, no thyromegaly or masses palpated, and no cervical lymphadenopathy. Supple, full range of motion without nuchal rigidity, or vertebral point tenderness. No Meningismus. Chest/axilla: Normal chest wall appearance and motion. Nontender with no deformity. No lesions are appreciated. Cardiovascular: Regular rate and rhythm with a normal S1 and S2. No gallops, murmurs, or rubs. Normal PMI, no JVD. No pulse deficits. Respiratory: Lungs have equal breath sounds bilaterally, clear to auscultation and percussion. No rales, rhonchi or wheezes noted. No increased work of breathing, no retractions or nasal flaring. Abdomen/GI: Soft, non-tender, with normal bowel sounds. No distension or tympany. No guarding or rebound. No evidence of tenderness throughout. Back: No spinal tenderness. No costovertebral tenderness. Full range of motion. MS/ Extremity: Pulses equal, no cyanosis. Neurovascular intact. Full, normal range of motion. Neuro: Awake and alert, GCS 15, oriented to person, place, time, and situation. No gross motor or sensory deficits. Vital Signs: 16:13 BP 137 / 74; Pulse 82; Resp 16 S; Temp 97.5(TE); Pulse Ox 98% on R/A; Weight 99.34 kg aa5 (R); Height 5 ft. 6 in. (R); 17:56 BP 127 / 82; Pulse 75; Resp 17; Pulse Ox 99% on R/A; ap3 18:43 BP 139 / 72; Pulse 61; Resp 17; Pulse Ox 100% on R/A; ap3 16:13 Body Mass Index 35.35 (99.34 kg, 167.64 cm) aa5 MDM: 16:13 Differential diagnosis: Medical Decision Making Differential Diagnosis: 1. jr11 Gastroesophageal reflux disease (GERD) 2. Peptic ulcer disease 3. Myocardial ischemia - r/o w trop 4. Aortic dissection (less likely but life-threatening) - denies tearing pain, no abd pain Plan - Perform blood work to evaluate cardiac risk - Conduct an EKG to assess heart function - Administer gastrointestinal medications for symptomatic relief - Continue Protonix as prescribed. 16:15 Medical Screening Exam initiated jr11 17:32 ED course: EKG interpreted by me shows normal sinus rhythm, normal axis, normal jr11 intervals, no acute ST changes, EKG normal. EKG normal and troponin is negative heart score less than 3. ekg monitor tech interpreted by me shows normal sinus rhythm rate of 65. 18:10 Data reviewed: X-ray interpreted by me no pneumonia troponin negative, heart score less jr11 than 3, to follow-up primary care. 18:12 ED course: PE ruled out, YEARS criteria. 02/18 16:11 Order name: Basic Metabolic Panel; Complete Time: 20:35 02/18 16:11 Order name: CBC with Diff; Complete Time: 18:04 02/18 16:11 Order name: D-Dimer; Complete Time: 18:04 02/18 16:11 Order name: LFT's; Complete Time: 20:35 02/18 16:11 Order name: NT PRO-BNP; Complete Time: 20:35 02/18 16:11 Order name: Troponin HS; Complete Time: 20:35 02/18 16:11 Order name: XRAY Chest (1 view); Complete Time: 17:04 02/18 16:11 Order name: EKG; Complete Time: 16:12 02/18 16:11 Order name: Cardiac monitoring; Complete Time: 17:18 02/18 16:11 Order name: EKG - Nurse/Tech; Complete Time: 17:09 02/18 16:11 Order name: IV Saline Lock; Complete Time: 17:42 02/18 16:11 Order name: Labs collected and sent; Complete Time: 17:42 02/18 16:11 Order name: O2 Per Protocol; Complete Time: 16:38 02/18 16:11 Order name: O2 Sat Monitoring; Complete Time: 16:38 Administered Medications: 17:39 Drug: Aspirin PO Chewable Tablet 324 mg PO once; 81 mg tablets x 4 Route: PO; ld1 17:39 Drug: GI Cocktail without - (Maalox PO 30 ml, Lidocaine Mucous Membrane 2 % 15 ld1 ml) PO once Route: PO; 17:41 Drug: Famotidine IVP 20 mg IVP once; dilute with 10 mL 0.9% NaCl; give over 2 minutes ap3 Route: IVP; Site: right antecubital; Disposition Summary: 02/18/25 20:58 Eloped Notes: Please follow up PCP 2-3 days for outpatient stress test
Disposition: after being s een by provider vc1 Reason: unknown vc1 Discharge Instructions: - Discharge Summary Sheet jr11 - Nonspecific Chest Pain, Adult jr11 Prescriptions: - Protonix 40 mg Oral Tablet - take 1 tablet ORAL route once daily; 30 tablet; Refills: 0, Product Selection jr11 Permitted Signatures: Dispatcher [employer] George Garcia MD MD cha Calderon, Audri, RN RN aa5 Мария Jensen RN RN ap3 Bridgett Kevin RN RN ld1 Franchesca Burgos RN RN vc1 Jesus Sharpe MD MD jr11 Corrections: (The following items were deleted from the chart) 16:12 16:12 BASIC METABOLIC PANEL+C.LAB.BRZ ordered. EDMS EDMS 16:12 16:12 CBC+H.LAB.BRZ ordered. EDMS EDMS 16:12 16:12 D-DIMER+COAG.LAB.BRZ ordered. EDMS EDMS 16:12 16:12 HEPATIC FUNCTION+C.LAB.BRZ ordered. EDMS EDMS 16:12 16:12 PROBNP+C.LAB.BRZ ordered. EDMS EDMS 16:12 16:12 Troponin High Sensitivity+C.LAB.BRZ ordered. EDMS EDMS
[2025-02-18 21:33] VITALS: TEMP 97.5
[2025-02-18 21:43] VITALS: BP 139/72; O2SAT 100
--- NOTE | 2025-02-21 10:56 | EKG ---
Test Date: 2025-02-18 Test Time: 17:06:59 Television Cameraman: GARCIA MEASUREMENT RESULTS: Intervals: Rate: 69 AK: 140 QRSD: 84 QT: 406 QTc: 435 [place]: P: 52 AK: 140 QRS: 40 T: 50 INTERPRETIVE STATEMENTS: Normal sinus rhythm Normal ECG Compared to ECG 09/20/2023 09:59:44 Sinus bradycardia no longer present Electronically Signed On 02-21-25 10:50:30 CDT by Pk Ruby
== END 2025-02-18 20:58 | disposition left against medical advice (07) ==
LOC: ER 15:58
DX: R07.89 Other chest pain (principal); I10 Essential (primary) hypertension; F41.9 Anxiety disorder, unspecified; Z72.0 Tobacco use
CPT/HCPCS: 36415; 71045; 80048; 80076; 83880; 84484; 85025; 85379; 93005; 96374; 99285